=== PATIENT | male | born 1955 | race Hispanic/Latino ===

== ENCOUNTER 2017-08-02 18:11 | Emergency (ER) | payer BC ==
[2017-08-02 20:05] LABS: #Basophils 0.1 thou/uL (0.0-0.2); #Eosinphils 0.2 thou/uL (0.0-0.7); #Lymphocytes 2.3 thou/uL (1.20-3.40); #Monocytes 0.7 thou/uL (0.11-0.59); #Neutrophils 5.8 thou/uL (1.40-6.50); %Basophils 1.1 % (0.0-1.0); %Eosinophils 2.7 % (0.0-10.0); %Monocytes 7.7 % (0.0-10.0); %Neutrophils 63.5 % (42.0-75.0); Hemoglobin 14.2 g/dL (14.0-18.0); Mean Corpuscular HGB CONC 34.1 g/dL (32.0-36.0); Mean Corpuscular Hemoglobin 29.9 pg (27.0-31.0); Mean Corpuscular Volume 87.7 fl (80.0-94.0); Mean Platelet Volume 8.6 fL (7.4-10.4); Platelet Count 261 thou/uL (130-400); RBC Distribution Width 12.1 % (11.5-14.5); Red Blood Cell (RBC) Count 4.76 mill/uL (4.70-6.10); White Blood Cell (WBC) Count 9.1 thou/uL (4.8-10.8)
--- NOTE | 2017-08-02 20:07 | RAD ---
LEFT FOOT THREE VIEWS: History: Infected great toe. Comparison: 07-14-10 FINDINGS/IMPRESSION: There has been amputation of the distal 3rd, 4th, and 5th digits at the distal metatarsal level. 1st and 2nd digits remain. There is no focal lytic or destructive process seen involving the great toe. N o plain film evidence of osteomyelitis identified. POS: [facility]
[2017-08-02 20:36] LABS: ALT (SGPT) 10 U/L (8-55); AST (SGOT) 11 U/L (5-34); Albumin 4.1 g/dL (3.4-4.8); Alkaline Phosphatase 128 U/L (40-150); Anion Gap 15 mmol/L (10-20); BUN (Urea Nitrogen) 26 mg/dL (8.4-25.7); Bilirubin, Total 0.2 mg/dL (0.2-1.2); Calc. Creatinine Clearance 0 mL/min (70-130); Calcium 9.9 mg/dL (7.8-10.44); Carbon Dioxide 24 mmol/L (23-31); Chloride 99 mmol/L (98-107); Estimated GFR-MDRD 50; Globulin 4.2 g/dL (2.4-3.5); Glucose 211 mg/dL (80-115); Potassium 4.3 mmol/L (3.5-5.1); Protein, Total 8.3 g/dL (5.8-8.1); Sodium 134 mmol/L (136-145)
[2017-08-02 21:11] LABS: Bilirubin Negative (Negative); Blood, Urine Trace (Negative); Clarity CLEAR (Clear); Glucose, Urine (Dipstick) >=1000 mg/dL (Negative); Leukocyte Negative (Negative); Nitrite Negative (Negative); Protein, Urine (Dipstick) Negative (Neg-Trace); Specific Gravity, Urine 1.037 (1.002-1.036); Urobilinogen 0.2 mg/dL (0.2-1.0)
[2017-08-02 21:12] LABS: Bacteria/HPF None Seen HPF (None Seen); Hyaline Casts/LPF 0-3 HYALINE CAST LPF (0-3 Hyaline); RBC/HPF 0-3 HPF (0-3); Squamous Epithelial None Seen HPF (0-3); WBC/HPF None Seen HPF (0-3)
[2017-08-02] MEDS ORDERED: Vancomycin HCl 1.25 GM in Sodium Chloride 0.9% 250 ML 250 ML IVPB SCH (21:30)
== END 2017-08-02 23:31 | disposition home or self-care (01) ==
LOC: ERS 18:11
DX: L03.032 Cellulitis of left toe (principal); E10.9 Type 1 diabetes mellitus without complications; Z79.899 Other long term (current) drug therapy
CPT/HCPCS: 10160; 36416; 80053; 81003; 81015; 85025; 87070; 87077; 87186; 87205; 96365; J3370; J7050

== ENCOUNTER 2017-08-07 10:39 | Inpatient (IN) | payer BC ==
[2017-08-07] MEDS ORDERED: Insulin Regular 300 UNITS/3 ML VIAL ONE (11:04)
[2017-08-07 11:15] LABS: #Lymphocytes 0.8 thou/uL (1.20-3.40); #Monocytes 1.3 thou/uL (0.11-0.59); #Neutrophils 14.7 thou/uL (1.40-6.50); %Basophils 0.1 % (0.0-1.0); %Eosinophils 0.2 % (0.0-10.0); %Lymphocytes 4.5 % (21.0-51.0); %Monocytes 7.9 % (0.0-10.0); %Neutrophils 87.3 % (42.0-75.0); Hemoglobin 12.7 g/dL (14.0-18.0); Mean Corpuscular HGB CONC 32.9 g/dL (32.0-36.0); Mean Corpuscular Hemoglobin 29.6 pg (27.0-31.0); Mean Platelet Volume 8.9 fL (7.4-10.4); Platelet Count 255 thou/uL (130-400); RBC Distribution Width 12.4 % (11.5-14.5); White Blood Cell (WBC) Count 16.9 thou/uL (4.8-10.8)
[2017-08-07 11:38] LABS: ALT (SGPT) 11 U/L (8-55); AST (SGOT) 15 U/L (5-34); Albumin 3.6 g/dL (3.4-4.8); Alkaline Phosphatase 109 U/L (40-150); Anion Gap 36 mmol/L (10-20); BUN (Urea Nitrogen) 48 mg/dL (8.4-25.7); Bilirubin, Total 0.3 mg/dL (0.2-1.2); Calc. Creatinine Clearance 0 mL/min (70-130); Calcium 9.2 mg/dL (7.8-10.44); Chloride 87 mmol/L (98-107); Estimated GFR-MDRD 25; Globulin 3.5 g/dL (2.4-3.5); Potassium 4.3 mmol/L (3.5-5.1); Protein, Total 7.1 g/dL (5.8-8.1); Sodium 127 mmol/L (136-145)
[2017-08-07 11:41] LABS: CKMB 1.2 ng/mL (0-6.6); Troponin I Less than 0.010 ng/mL (< 0.028)
[2017-08-07 11:44] LABS: Carbon Dioxide 8 mmol/L (23-31); Glucose 672 mg/dL (80-115)
[2017-08-07] MEDS ORDERED: Insulin Regular 100 units/100 ml in NS IVPB SCH (12:15)
[2017-08-07 12:26] LABS: Bilirubin Moderate (Negative); Blood, Urine Negative (Negative); Clarity CLEAR (Clear); Glucose, Urine (Dipstick) >=1000 mg/dL (Negative); Leukocyte Negative (Negative); Nitrite Negative (Negative); Protein, Urine (Dipstick) Negative (Neg-Trace); Specific Gravity, Urine 1.025 (1.002-1.036); Urobilinogen 0.2 mg/dL (0.2-1.0)
[2017-08-07] MEDS ORDERED: Ondansetron HCl/PF 4 MG/2 ML Vial ONE (13:45)
[2017-08-07] MEDS ORDERED: D5 1/2 NS w/20 mEq KCL 1,000 ML IV PRN (13:57)
[2017-08-07] MEDS ORDERED: Ondansetron HCl/PF 4 MG/2 ML Vial IVP PRN (13:57)
[2017-08-07] MEDS ORDERED: HYDROcodone/Acetaminophen 5/325 mg Tablet PO PRN (13:57)
[2017-08-07] MEDS ORDERED: Dextrose 50% Abboject 50 ML SYRINGE SLOW IVP PRN (13:57)
[2017-08-07] MEDS ORDERED: Dextrose 5 %-0.45 % NaCl 1,000 ML IV PRN (13:57)
[2017-08-07] MEDS ORDERED: Acetaminophen 325 MG TAB PO PRN (13:57)
[2017-08-07] MEDS ORDERED: Dextrose 5% in Water 1,000 ML IV PRN (13:57)
[2017-08-07] MEDS ORDERED: Sodium Chloride 0.9% 1,000 ML IV PRN ×4 (13:57)
[2017-08-07] MEDS ORDERED: HYDROcodone/Acetaminophen 10/325 mg Tablet PO PRN (13:57)
[2017-08-07] MEDS ORDERED: Ondansetron ODT 4 MG TAB PO PRN (13:57)
[2017-08-07] MEDS ORDERED: HumaLOG 300 UNITS/3 ML VIAL SC PRN (13:57)
[2017-08-07] MEDS ORDERED: CCU Electrolyte Replacement 1 EACH IVPB ONE (13:57)
[2017-08-07] MEDS ORDERED: Potassium Chloride 20 MEQ TAB PO PRN (14:08)
[2017-08-07] MEDS ORDERED: Potassium Chloride 40 MEQ in Premix Bag 1 BAG IVPB PRN (14:08)
[2017-08-07] MEDS ORDERED: Magnesium Oxide 400 MG TAB PO PRN ×2 (14:08)
[2017-08-07] MEDS ORDERED: Potassium Phosphate 15 MMOL in Sodium Chloride 0.9% 250 ML 250 ML IV PRN (14:08)
[2017-08-07] MEDS ORDERED: Potassium Chloride 40 MEQ in Sodium Chloride 0.9% 250 ML 250 ML IVPB PRN (14:08)
[2017-08-07] MEDS ORDERED: Potassium Phosphate 12 MMOL in Sodium Chloride 0.9% 250 ML 250 ML IV PRN (14:08)
[2017-08-07] MEDS ORDERED: Potassium Phosphate 9 MMOL in Sodium Chloride 0.9% 100 ML IVPB PRN (14:08)
[2017-08-07] MEDS ORDERED: CCU ELECTROLYTE REPLACEMENT PROTOCOL FS PRN (14:08)
[2017-08-07] MEDS ORDERED: Magnesium 2 GM/NS 0.9% 100 ML 2 GM in Premix Bag 1 BAG IVPB PRN (14:08)
[2017-08-07 14:09] VITALS: BMI 27.2
[2017-08-07] MEDS: NS 0.9% w/ 20 MEQ KCL 1,000 ML IV PRN ×3 (14:12→17:58)
[2017-08-07] MEDS ORDERED: Insulin Detemir 100 UNITS/ML 30 UNITS in Pre-Filled Syringe SC SCH (14:15)
[2017-08-07] MEDS ORDERED: Enoxaparin Sodium 30 MG/0.3 ML SYRINGE SC SCH (14:15)
[2017-08-07] MEDS: Sodium Chloride 0.9% 1,000 ML IV SCH ×3 (14:23→21:00)
[2017-08-07 14:58] LABS: Anion Gap 25 mmol/L (10-20); BUN (Urea Nitrogen) 44 mg/dL (8.4-25.7); Calc. Creatinine Clearance 41 mL/min (70-130); Carbon Dioxide 19 mmol/L (23-31); Chloride 90 mmol/L (98-107); Estimated GFR-MDRD 30; Glucose 339 mg/dL (80-115); Magnesium 2.3 mg/dL (1.6-2.6); Phosphorus 4.1 mg/dL (2.3-4.7); Potassium 4.8 mmol/L (3.5-5.1); Sodium 129 mmol/L (136-145)
[2017-08-07] MEDS: CEFAZOLIN/Water 2 GM/20 ML SYRINGE SLOW IVP SCH ×2 (14:59→21:02)
[2017-08-07] MEDS: HumaLOG 300 UNITS/3 ML VIAL SC SCH (15:20)
--- NOTE | 2017-08-07 16:02 | HP ---
DATE OF ADMISSION: 08/07/2017 TIME OF SERVICE: 12:15 CHIEF COMPLAINT: Elevated blood sugar. HISTORY OF PRESENT ILLNESS: Mr. Frances is a pleasant 61-year-old Latin-[place]ian male with history of diabetes mellitus, type 1, managed by Dr. Cristopher Finch; and left eye blindness. He does have a h istory of reflux in the past; he just takes Tums now for. The patient developed increased pain, redness, and swelling to his left hallux. He has already had a n amputation of the third, fourth, and fifth toes on that side and was concerned, [facility]. There, he underwent I and D with a large amount of pus removed. He was placed on levofloxacin per e ER notes and discharged home. Labs at that time were normal. He initially did well, but on 08/04/2017, two days later, patient started having nausea and vomiting, inability to keep food down. He thought it was his antibiotic, so he stopped taking that, and then his blood sugars started to increase. He was on insulin pump and so continued the bolus himself, bas ed on his elevated blood sugar readings. One time, he was able to get it down to about 149, but that was his lowest it got. He continued to have high blood sugars and some nausea and vomiting that wer e improved continued. So, he presented to the emergency department today for evaluation. On arrival, blood sugar was in the 70s, white blood cell count was 16.9 with an increased granulocyte s, but no bands. He had an anion gap of 36 with a bicarbonate of 8 and beta-hydroxybutyrate was over 12. The patient was given 10 units of IV insulin, 1 liter normal saline, and we are called for admi ssion. The patient is feeling better at this time. He is actually feeling hungry and wanting to eat. He de nies any nausea or vomiting. No diarrhea or constipation, no sick contacts. He has had no chest freddy n or shortness of breath. No sputum production. No GI bleeding. PAST MEDICAL HISTORY: 1. Diabetes mellitus, type 1, since age 11. 2. Left eye blindness. 3. Cellulitis of the left hallux as above. PAST SURGICAL HISTORY: Include left foot toe amputations 3 through , 2012. HOME MEDICATIONS: 1. Metformin 500 mg p.o. b.i.d. 2. Protonix 40 mg daily. 3. Lisinopril 10 mg p.o. b.i.d. 4. Insulin Humalog via insulin pump. 5. Invokana. 6. Levaquin 500 mg daily, started on 08/02/2017 and stopped on 08/04/2017 or 08/05/2017. ALLERGIES: NKDA. FAMILY HISTORY: Negative for clotting or bleeding disorder, no immune dysfunction. No autoimmune di sorders. SOCIAL HISTORY: Negative for habits x3. He is . His accompanies him. REVIEW OF SYSTEMS: A 10-point review of systems was performed and is negative for all systems except that as per HPI. PHYSICAL EXAMINATION: VITAL SIGNS: Temperature 97.7, pulse 59, blood pressure 105/41, respiratory rate 18, satting 95% on room air. GENERAL: He is awake. He is alert. He is oriented x3. He is a well-developed, well-nourished Lati n-[place] male, who appears to be in no acute distress. HEENT: Normocephalic, atraumatic. Right eye pupils round and reactive. Left eye is round and minim ally reactive. Mucous membranes are moist. No visible lesions or thrush. NECK: Supple, no lymphadenopathy, JVD, or thyromegaly. LUNGS: Clear to auscultation bilaterally. He has no wheeze, no rales, no rhonchi. He has good air movement with excellent chest excursion. He has no prolonged expiratory phase. CARDIOVASCULAR: Normocardic and regular. Normal S1 and S2. No S3 or S4. No audible murmurs. ABDOMEN: Soft. It is nontender, nondistended, no mass, no organomegaly. No rebound, rigidity, or g uarding. EXTREMITIES: No cyanosis, no clubbing, no edema. He has got 1+ dorsalis pedis and posterior tibial pulses. His feet are warm. He does have a left foot without the third through fifth toes and had a flap procedure for closure. His hallux has a paronychia present that is apparently improved. There is some redness, no fluctuance, no draining. NEUROLOGIC EXAM: Cranial nerves II-XII are grossly intact without any focal neurologic deficits with the exception of his left eye being minimally reactive. He has no focal neurologic deficits. He hager s normal speech pattern, 5/5 strength. SKIN: Otherwise, warm, moist, well perfused without any other rashes or lesions. MUSCULOSKELETAL EXAM: Normal to inspection. He has no inflamed joints. No palpable joint effusions . LABORATORY DATA: Sodium was 127, artificially down due to pseudohyponatremia, potassium 4.3, chlorid e 87, bicarbonate 8, BUN 48, creatinine 2.63. Of note, his bicarbonate was 24 and creatinine 1.44 on 08/02/2017. Liver function within normal limits. CBC showed a white count of 16.9 with 87% granulocytes, hemoglobin is 12.7, hematocrit 38.7, platelet count is 255,000. CK-MB is normal at 1.2, troponin I is less than 0.010. Review of his culture showed his stool culture from 08/02 being MSSA. Foot x-ray on 08/02/2017 showed no lytic lesions. No evidence of osteomyelitis. ASSESSMENT AND PLAN: 1. Diabetic ketoacidosis. The patient does have an elevated anion gap, elevated beta-hydroxybutyrat e, elevated blood sugar in a type 1 diabetic. His sugar came from 672 down to 460 with a single dose of 10 units. We will hold off on insulin drip, give him a dose of 30 units of Levemir, and use 10 u nits of Humalog before meals with a Humalog sliding scale today. After initial evaluation and prior to dictation of this note, before the benefit of any further insulin, the patient was transferred to the Intermediate Care Unit per my orders. Blood sugar on arrival to the ICU was 342. Repeat labs sh owed his creatinine down from 2.63-2.22, bicarbonate was 8 up to 19, and anion gap was improved from 36 down to 25. His phosphorus and mag were normal at 4.1 and 2.3 respectively. 2. Diabetes mellitus, type 1, as above. 3. Left foot cellulitis, methicillin-susceptible Staphylococcus aureus on culture. We will start hi m on Ancef 2 grams IV q.8 hours and dose is appropriate for normal renal function. 4. Acute kidney injury: The patient has a creatinine of 2.63, normally 1.44. It is likely secondar y to dehydration. We will continue to hydrate and repeat his labs in the morning.
[2017-08-07] MEDS ORDERED: Famotidine 40 MG/4 ML VIAL SLOW IVP SCH (21:00)
[2017-08-07] MEDS ORDERED: Famotidine/PF 20 mg/2ml Vial SLOW IVP SCH (21:00)
[2017-08-07 21:05] LABS: Anion Gap 16 mmol/L (10-20); BUN (Urea Nitrogen) 35 mg/dL (8.4-25.7); Calc. Creatinine Clearance 53 mL/min (70-130); Calcium 8.3 mg/dL (7.8-10.44); Carbon Dioxide 24 mmol/L (23-31); Chloride 102 mmol/L (98-107); Estimated GFR-MDRD 40; Glucose 110 mg/dL (80-115); Magnesium 2.1 mg/dL (1.6-2.6); Phosphorus 2.9 mg/dL (2.3-4.7); Potassium 4.4 mmol/L (3.5-5.1); Sodium 138 mmol/L (136-145)
[2017-08-08 02:07] LABS: #Basophils 0.1 thou/uL (0.0-0.2); #Neutrophils 7.9 thou/uL (1.40-6.50); %Basophils 0.6 % (0.0-1.0); %Eosinophils 0.4 % (0.0-10.0); %Lymphocytes 17.9 % (21.0-51.0); %Monocytes 9.3 % (0.0-10.0); %Neutrophils 71.8 % (42.0-75.0); Hemoglobin 11.8 g/dL (14.0-18.0); Mean Corpuscular HGB CONC 34.4 g/dL (32.0-36.0); Mean Corpuscular Hemoglobin 29.8 pg (27.0-31.0); Mean Corpuscular Volume 86.7 fl (80.0-94.0); Mean Platelet Volume 7.9 fL (7.4-10.4); Platelet Count 214 thou/uL (130-400); RBC Distribution Width 12.2 % (11.5-14.5); Red Blood Cell (RBC) Count 3.95 mill/uL (4.70-6.10)
[2017-08-08 02:16] LABS: Anion Gap 9 mmol/L (10-20); BUN (Urea Nitrogen) 28 mg/dL (8.4-25.7); Calc. Creatinine Clearance 65 mL/min (70-130); Carbon Dioxide 26 mmol/L (23-31); Chloride 106 mmol/L (98-107); Estimated GFR-MDRD 51; Glucose 98 mg/dL (80-115); Phosphorus 2.4 mg/dL (2.3-4.7); Potassium 4.3 mmol/L (3.5-5.1); Sodium 137 mmol/L (136-145)
[2017-08-08] MEDS: NS 0.9% w/ 20 MEQ KCL 1,000 ML IV PRN ×3 (03:56→08:16)
[2017-08-08] MEDS: Sodium Chloride 0.9% 1,000 ML IV SCH ×2 (05:56→08:21)
[2017-08-08] MEDS: CEFAZOLIN/Water 2 GM/20 ML SYRINGE SLOW IVP SCH (06:24)
[2017-08-08] MEDS: HumaLOG 300 UNITS/3 ML VIAL SC SCH ×2 (08:16→10:45)
[2017-08-08 08:40] LABS: Anion Gap 14 mmol/L (10-20); BUN (Urea Nitrogen) 21 mg/dL (8.4-25.7); Calc. Creatinine Clearance 69 mL/min (70-130); Calcium 8.5 mg/dL (7.8-10.44); Carbon Dioxide 23 mmol/L (23-31); Chloride 106 mmol/L (98-107); Estimated GFR-MDRD 53; Glucose 214 mg/dL (80-115); Magnesium 2.1 mg/dL (1.6-2.6); Phosphorus 2.1 mg/dL (2.3-4.7); Potassium 4.7 mmol/L (3.5-5.1); Sodium 138 mmol/L (136-145)
[2017-08-08] MEDS ORDERED: Enoxaparin Sodium 30 MG/0.3 ML SYRINGE SC SCH (09:00)
[2017-08-08 12:06] VITALS: BP 125/37; TEMP 98.8
--- NOTE | 2017-08-08 19:17 | DIS ---
PRIMARY CARE PHYSICIAN: Charly Freitas M.D. DATE OF ADMISSION: 08/07/2017 DATE OF DISCHARGE: 08/08/2017 DISCHARGE DIAGNOSES: 1. Diabetic ketoacidosis. 2. Type 1 diabetes mellitus. 3. Cellulitis of the left hallux. 4. Paronychia of the left hallux. 5. Methicillin-sensitive Staphylococcus aureus abscess and cellulitis of the hallux. 6. Moderate dehydration. 7. Acute kidney injury, resolved. CONSULTATIONS: None. PROCEDURES: None. HISTORY AND PHYSICAL: Mr. Frances is a 61-year-old male who was initially seen in the e mergency department on 08/02/2017 for infection of his left hallux. He had a paronychia that was inc ised and drained and the patient was placed on Levaquin and sent home. The labs at that time were no rmal. Two days later, he started having nausea and vomiting, initially thought it was the antibiotics, so w e stopped it, but continued to have nausea and vomiting and unable to keep anything down. During noreen t time, his sugars became elevated into the 500 to 600 range and he was giving himself boluses via hi s insulin pump. At best, low sugar he had since that time was 149, but it remained elevated and on t he day of admission, came to the emergency department for evaluation. There, he was found to have an anion gap of 36, bicarbonate of 8, sugar was 670, and a beta hydroxybu tyrate came back at 12.5. He was given 10 units of IV insulin and a liter of fluids and we were call ed for admission. HOSPITAL COURSE: The patient was seen and examined by me in the emergency department. He looked to be actually very awake, alert, and comfortable despite what his labs appeared to be. I felt that he did have DKA, but the bigger problem was dehydration and lack of eating causing most of his lab abnor malities. He was placed in the Intermediate Care Unit for close monitoring and frequent labs, he was given 30 units of subcutaneous Levemir and q.i.d. a.c. and at bedtime, Humalog 10 units when he ate. He was transferred to the ICU and immediately was started eating well. His next of the labs showed h is anion gap improved from 36-24, sugars came down from 670-460 with the initial 10 units of Humalog insulin in the Emergency Department, and subsequently down in the mid 300s prior to even getting to t he IMCU and started him on long-acting insulin. Repeat labs through the night showed his anion gap closed, his beta hydroxybutyrate improved down to three 8 or 9 hours later. He was eating well and blood sugars remained fairly normal. On 08/08/2017, he was eating well, felt much better and was stable for discharge. From the aspect of his toe, he was started on Ancef 2 grams IV q.8 hours for MSSA. He tolerated that well and did well overnight. Today, his toe is having some seropurulent drainage, but looked overal l improved. He was transitioned to oral Keflex for another 10-14 days. The patient was seen and exa mined on the day of discharge. Discharge plan and disposition we discussed with the patient and his face to face at the bedside . DISCHARGE MEDICATIONS: 1. Keflex 500 mg p.o. q.i.d. for 10 more days, dosed for his current renal function. Creatinine was down to 1.37. 2. Vitamin C 1000 mg daily. 3. Aspirin 81 mg daily. 4. Invokana 300 mg daily. 5. Vitamin D3 of 1000 units daily. 6. Vitamin B12 of 5000 mcg daily. 7. Fish oil 1 capsule daily. 8. Humalog insulin pump as previous. 9. Lisinopril 10 mg p.o. b.i.d. 10. Metformin 500 mg p.o. b.i.d. 11. Multivitamin daily. FOLLOWUP APPOINTMENTS: Dr. Freitas within a week. DISCHARGE ACTIVITY: As tolerated. DISCHARGE DIET: Diabetic, heart healthy recommended. DISCHARGE CONDITION: Stable. DISPOSITION: He is discharged home via private vehicle.
== END 2017-08-08 12:00 | disposition home or self-care (01) | DRG 638 ==
LOC: ERS 10:39 → IMCU/EMU 12:35
PROVIDERS: ADMIT Internal Medicine Infectious Disease; ATTEND Internal Medicine Infectious Disease
DX: E10.10 Type 1 diabetes mellitus with ketoacidosis without coma (principal); N17.9 Acute kidney failure, unspecified; L03.032 Cellulitis of left toe; B95.61 Methicillin susceptible Staphylococcus aureus infection as the cause of diseases classified elsewhere; E86.0 Dehydration; H54.62 Unqualified visual loss, left eye, normal vision right eye; Z79.4 Long term (current) use of insulin; Z79.899 Other long term (current) drug therapy; Z96.41 Presence of insulin pump (external) (internal); Z89.422 Acquired absence of other left toe(s)
CPT/HCPCS: 36415; 36416; 80048; 80053; 81003; 82010; 82553; 83735; 84100; 84484; 85025; 96361; 96374; 96375; J1815; J2405; J7050

== ENCOUNTER 2019-02-03 14:08 | Inpatient (IN) | payer BC ==
[2019-02-03] MEDS ORDERED: PROPOFOL 200 MG/20 ML VIAL ONE (14:20)
[2019-02-03] MEDS ORDERED: Ondansetron PF 4 MG/2 ML Vial ONE (14:47)
[2019-02-03 14:53] LABS: #Basophils 0.1 thou/uL (0.0-0.2); #Eosinphils 0.1 thou/uL (0.0-0.7); #Lymphocytes 2.3 thou/uL (1.20-3.40); #Monocytes 0.6 thou/uL (0.11-0.59); %Eosinophils 1.1 % (0.0-10.0); %Lymphocytes 20.9 % (21.0-51.0); %Monocytes 5.1 % (0.0-10.0); %Neutrophils 71.8 % (42.0-75.0); Hemoglobin 10.8 g/dL (14.0-18.0); Mean Corpuscular HGB CONC 34.6 g/dL (32.0-36.0); Mean Corpuscular Volume 89.7 fL (78.0-98.0); Mean Platelet Volume 9.2 fL (7.4-10.4); Platelet Count 255 thou/uL (130-400); RBC Distribution Width 11.5 % (11.5-14.5); Red Blood Cell (RBC) Count 3.49 mill/uL (4.70-6.10); White Blood Cell (WBC) Count 11.2 thou/uL (4.8-10.8)
[2019-02-03] MEDS ORDERED: Pantoprazole 40 MG VIAL ONE ×2 (14:53→14:55)
[2019-02-03] MEDS ORDERED: cefTRIAXone\\ROCEPHIN 1 GM VIAL ONE ×2 (14:53→14:55)
[2019-02-03 15:14] LABS: ALT (SGPT) 9 U/L (8-55); AST (SGOT) 11 U/L (5-34); Albumin 3.6 g/dL (3.4-4.8); Alkaline Phosphatase 93 U/L (40-150); Anion Gap 16 mmol/L (10-20); BUN (Urea Nitrogen) 53 mg/dL (8.4-25.7); Bilirubin, Total 0.3 mg/dL (0.2-1.2); CK (CPK) 79 U/L (30-200); Calc. Creatinine Clearance 0 mL/min (70-130); Carbon Dioxide 20 mmol/L (23-31); Chloride 103 mmol/L (98-107); Estimated GFR-MDRD 50; Globulin 2.5 g/dL (2.4-3.5); Glucose 422 mg/dL (80-115); Potassium 4.8 mmol/L (3.5-5.1); Protein, Total 6.1 g/dL (5.8-8.1); Sodium 134 mmol/L (136-145)
[2019-02-03 15:22] LABS: Base Excess-Venous -3.7 mmol/L (-2.0 to 3.0); Bicarbonate (HCO3v) 21.1 mmol/L (22.0-28.0); CO2 Tension (PvCO2) 36.7 mmHg (40.0-50.0); Calcium, Ionized 1.13 mmol/L (See Comments:); Chloride 102 mmol/L (98-107); Glucose 411 mg/dL (80-115); Hemoglobin - Calc 10.4 g/dL (14.0-18.0); Lactate 2.99 mmol/L (0.50-2.20); Potassium 4.5 mmol/L (3.5-5.1); Sodium 136 mmol/L (138-145); T. Carbon Dioxide 22.3 mmol/L (22.0-28.0)
[2019-02-03 15:38] LABS: INR-International Normal Ratio 1.1; PTT 26.7 SEC (22.9-36.1); Prothrombin Time 14.5 SEC (12.0-14.7)
[2019-02-03] MEDS ORDERED: Pantoprazole 80 MG, Admixture Fee 1 EACH in Sodium Chloride 0.9% 100 ML IVPB SCH (15:45)
[2019-02-03] MEDS ORDERED: Octreotide Acetate 1,250 MCG in Sodium Chloride 0.9% 250 ML 250 ML IVPB SCH (15:45)
[2019-02-03] MEDS ORDERED: Pantoprazole 40 MG VIAL IVP SCH (16:15)
[2019-02-03] MEDS ORDERED: Dextrose 50% Abboject 50 ML SYRINGE SLOW IVP PRN ×2 (17:13→18:14)
[2019-02-03] MEDS ORDERED: HUMULIN R 100 UNITS in Sodium Chloride 0.9% 100 ML IVPB SCH (17:13)
[2019-02-03] MEDS ORDERED: Dextrose 5% in Water 1,000 ML IV PRN ×2 (17:13→18:14)
[2019-02-03] MEDS ORDERED: Ondansetron PF 4 MG/2 ML Vial IVP PRN (17:13)
[2019-02-03] MEDS ORDERED: CCU Electrolyte Replacement 1 EACH FS ONE (17:13)
[2019-02-03] MEDS ORDERED: PHOS-NAK 1 PKT PACK PO PRN ×2 (17:21)
[2019-02-03] MEDS ORDERED: Potassium Chloride 40 MEQ in Sodium Chloride 0.9% 250 ML 250 ML IVPB PRN (17:21)
[2019-02-03] MEDS ORDERED: CCU ELECTROLYTE REPLACEMENT PROTOCOL FS PRN (17:21)
[2019-02-03] MEDS ORDERED: Potassium Chloride 40 MEQ in Premix Bag 1 BAG IVPB PRN (17:21)
[2019-02-03] MEDS ORDERED: Potassium Phosphate 15 MMOL in Sodium Chloride 0.9% 250 ML 250 ML IV PRN (17:21)
[2019-02-03] MEDS ORDERED: Potassium Chloride 20 MEQ TAB PO PRN (17:21)
[2019-02-03] MEDS ORDERED: Potassium Phosphate 12 MMOL in Sodium Chloride 0.9% 250 ML 250 ML IV PRN (17:21)
[2019-02-03] MEDS ORDERED: Potassium Phosphate 9 MMOL in Sodium Chloride 0.9% 100 ML IVPB PRN (17:21)
[2019-02-03] MEDS ORDERED: Magnesium 2 GM/50 ML 2 GM in Premix Bag 1 BAG IVPB PRN (17:21)
[2019-02-03] MEDS ORDERED: Magnesium Oxide 400 MG TAB PO PRN ×2 (17:21)
[2019-02-03 18:03] VITALS: BMI 30.7
[2019-02-03] MEDS ORDERED: HumaLOG 300 UNITS/3 ML VIAL SC PRN (18:14)
--- NOTE | 2019-02-03 18:16 | PDOC.EVN ---
Event Note - Event Note Event Note: Patient's blood glucose was 59 when he arrived to the ICU- will not use insulin drip, but place him on Lantus, and SSI.
[2019-02-03] MEDS: Sodium Chloride 0.9% 1,000 ML IV SCH (18:40)
[2019-02-03 19:08] LABS: Lactic Acid 1.2 mmol/L (0.5-2.2)
[2019-02-03 21:08] LABS: Platelet Count 225 thou/uL (130-400)
[2019-02-03 21:27] LABS: Anion Gap 11 mmol/L (10-20); BUN (Urea Nitrogen) 51 mg/dL (8.4-25.7); Calc. Creatinine Clearance 96 mL/min (70-130); Calcium 8.4 mg/dL (7.8-10.44); Carbon Dioxide 25 mmol/L (23-31); Chloride 107 mmol/L (98-107); Estimated GFR-MDRD 76; Potassium 4.6 mmol/L (3.5-5.1); Sodium 138 mmol/L (136-145)
[2019-02-03 21:29] LABS: Glucose 58 mg/dL (80-115)
[2019-02-03] MEDS: Insulin Glargine 14 UNITS in Pre-Filled Syringe SC SCH (22:10)
--- NOTE | 2019-02-04 00:14 | HP ---
PRIMARY CARE PHYSICIAN: Dr. Charly Freitas. CHIEF COMPLAINT: "My blood sugar has been going up and down." HISTORY OF PRESENT ILLNESS: Mr. Frances is a pleasant 63-year-old gentleman, who has a history of type 1 diabetes. He also has vision loss in his left eye secondary to diabetes. He was in his usual state of health until the day before yesterday when he noticed that his blood sugar had been fluctuating and it continued into the day and his blood sugar had gone up as high as 500. He has an insulin pump and had been doing the corrections, but still his blood glucose has been fluctuating. He denies changing his diet and he denies feeling sick that he can remember. However, his is at the bedside and says that he has been having some diarrhea off and on for the past 2 days. She had seen it yesterday, but today she noticed that it was almost black in color, but did not see any blood. She also says that he has been having heartburn off and on and takes Tums and [place] off and on. He also states that he does take an Aleve every now and then for his foot where he had to have an amputation in the past and he has also been taking aspirin 3 times a week. When he came to the ER, it was noted that his blood glucose was elevated and when he was sitting out in the waiting room, he started vomiting some coffee brown emesis. He was brought back into the ER and lab tests were done. He was found to have a hemoglobin of 10.8, which is slightly lower than his previous. By this time, the bleeding had stopped and he is being admitted for further evaluation. The patient denies having any abdominal pain that he can recall, but does admit to having some nausea off and on and again the heartburn symptoms. He has no known history of any previous gastroesophageal disease. He denies knowing of any liver disease in the past and denies feeling dizzy or lightheaded. REVIEW OF SYSTEMS: CONSTITUTIONAL: There has been no fevers, chills. No night sweats. No weight loss. HEENT: No headaches, no dizziness. No visual changes. No sore throat. No rhinorrhea. NECK: No neck pain. No adenopathy. PULMONARY: No hemoptysis. No cough. No wheezing. CARDIOVASCULAR: No chest pain. No shortness of breath. No PND. No orthopnea. GASTROINTESTINAL: Is as in the history of present illness. GENITOURINARY: No urinary frequency or hematuria. No hesitancy. MUSCULOSKELETAL: No muscle pains, weakness, or joint pains, other than occasional pain in his left foot. SKIN AND INTEGUMENT: No skin changes. No rash. ENDOCRINE: No polyuria, no polydipsia, and he does complain of blood glucoses have been elevated. PAST MEDICAL HISTORY: Significant for diabetes mellitus type 1, as well as blindness in the left eye. PAST SURGICAL HISTORY: He has had a left toe amputation. ALLERGIES: NO KNOWN DRUG ALLERGIES. SOCIAL HISTORY: He is a nonsmoker and nondrinker. He is . He would like to be a full code. FAMILY HISTORY: No history of any known heritable diseases. CURRENT MEDICATIONS: Include: 1. Humulin insulin pump. 2. Lisinopril 10 mg twice daily. 3. Metformin 500 mg twice daily. 4. Invokana 300 mg daily. 5. Aspirin 81 mg three times a week. 6. Vitamin D3. 7. Fish oil 1200 mg p.o. daily. 8. Vitamin C 1000 mg daily. 9. Vitamin B12 12380 units sublingual. PHYSICAL EXAMINATION: GENERAL: He is alert and oriented. He is chronically ill in appearance, but well developed and well nourished. VITAL SIGNS: Blood pressure initially was 81/45, heart rate 96, respiratory rate of 18, temperature is afebrile. HEENT: Pupils are equal, round, and reactive to light. Extraocular muscles are intact. Sclerae are anicteric. Throat, there is no erythema, no exudates. NECK: There is no adenopathy, no bruits. LUNGS: There is no wheezing, no rales, no rhonchi. CARDIOVASCULAR: He has normal S1, S2. There is no S3 or S4. No murmurs, clicks, or rubs. ABDOMEN: Obese, it is soft, nontender, and nondistended. Positive for bowel sounds. There is no rebound, no guarding, no appreciated. EXTREMITIES: He did have 1+ edema. There was no erythema. There are no joint effusions. NEUROLOGIC: His cranial nerves are intact. Muscle strength is 5/5 in both his upper and lower extremities. SKIN AND INTEGUMENT: There is no skin breakdown on his feet or lower extremities. He did have some chronic venous stasis changes, but otherwise no other lesions. LABORATORY DATA: Lab results, the white blood cell count is 11.2, hemoglobin 10.8, hematocrit is 31.3, and platelet count is 255. INR is 1.1. Sodium 136, potassium 4.5, chloride is 102, CO2 is 17, BUN 53, creatinine 1.08, glucose is 411. ASSESSMENT: This is a pleasant 63-year-old gentleman, who presents with fluctuating blood glucose as well as what appears to be an upper gastrointestinal bleed. He has history of using some Advil and Aleve off and on and this does present a risk factor for peptic ulcer disease. No history of any liver disease that he is aware of. He will be admitted to the ICU. He has been started on IV fluids for fluid resuscitation. We will monitor his H and H and place him on a Protonix drip. Also, we will continue the octreotide drip as a precaution, and GI will also be consulted. We will transfuse for H and H less than 7 or if he becomes symptomatic. 1. Diabetes mellitus type 1. The patient will be n.p.o. He normally uses an insulin pump; however in order to maintain control of his blood glucose and for the nurses to have a better idea of how much insulin he is receiving, it is better to place the patient on an insulin drip and disable the insulin pump at this time until he has been cleared to start p.o. once again by GI. There will be no Lovenox due to the possible GI bleed and he will be placed on . Job ID: [id number]
[2019-02-04] MEDS: Pantoprazole 80 MG, Admixture Fee 1 EACH in Sodium Chloride 0.9% 100 ML IVPB SCH ×2 (00:44→22:09)
[2019-02-04 01:29] LABS: Hemoglobin 9.8 g/dL (14.0-18.0); Platelet Count 225 thou/uL (130-400)
[2019-02-04 01:38] LABS: Anion Gap 13 mmol/L (10-20); BUN (Urea Nitrogen) 44 mg/dL (8.4-25.7); Calc. Creatinine Clearance 92 mL/min (70-130); Calcium 8.5 mg/dL (7.8-10.44); Carbon Dioxide 20 mmol/L (23-31); Chloride 107 mmol/L (98-107); Estimated GFR-MDRD 73; Glucose 217 mg/dL (80-115); Potassium 4.5 mmol/L (3.5-5.1); Sodium 135 mmol/L (136-145)
--- NOTE | 2019-02-04 02:40 | CON ---
DATE OF CONSULTATION: 02/03/2019 CHIEF COMPLAINT: Vomited blood. HISTORY OF PRESENT ILLNESS: Mr. Frances is a 63-year-old man who was brought to the emergency room by his . The patient is confused and currently, he is in the intensive care unit and is unable to provide any history. He just states now that he woke up in the ICU and it is unsure how he got there and has no recollection of the preceding several days. The ER physician reported that his stated that he had high blood sugars, confusion, weakness and was passing black stools, so she brought him to the ER. The patient has had confusion for a while now. The patient was apparently diaphoretic and had reported abdominal pain earlier in the ER, but the patient currently states he has no abdominal pain. He has been on aspirin. Apparently, he had multiple episodes of coffee-grounds emesis that occurred in the emergency room and this was associated with hypotension with his blood pressure in the 81/45 range. He was given fluid boluses couple of liters and admitted to the ICU due to concern of melena, hematemesis and hypotension. His blood sugars have run low here in ICU and he has required D50. His blood pressure has improved and he has had no further overt bleeding or vomiting since he has been in the ICU. He does not feel nauseated now. The patient denies diarrhea or constipation otherwise. No fever or shortness of breath or prior blood in the stool. He has not had endoscopy before. PAST MEDICAL HISTORY: Diabetes mellitus type 1, which has been managed with insulin pump. He has had amputations of the toes with cellulitis, blindness in the left eye. PAST SURGICAL HISTORY: Has toe amputation. He has had a left hydrocelectomy. FAMILY HISTORY: Negative for GI malignancy. SOCIAL HISTORY: No alcohol, tobacco, or drugs. He is and his has been giving most of his history, however, she is not at the bedside now. ALLERGIES: NO KNOWN DRUG ALLERGIES. MEDICATIONS: 1. Insulin pump. 2. Lisinopril. 3. Metformin. 4. Invokana. 5. Aspirin 81 mg daily. REVIEW OF SYSTEMS: Negative x10 systems reviewed except as stated in the history of present illness. PHYSICAL EXAMINATION: VITAL SIGNS: Temperature is 98.3, pulse 67, blood pressure 123/53. GENERAL: He is in no acute distress. He is awake and alert, but not appropriate to his conversation. He just keeps stating that he does not know how he got here. His eyes have no scleral icterus. Oropharynx is clear without lesions. NECK: No cervical or supraclavicular lymph node adenopathy. LUNGS: Clear to auscultation bilaterally. HEART: Regular rate and rhythm without murmur. ABDOMEN: Soft, nontender, and nondistended. Bowel sounds are present. EXTREMITIES: No lower extremity edema. RECTAL: Reveals dark brown stool in the rectal vault. LABORATORY DATA: White blood cell count is 11.2, hemoglobin was 10.8 on presentation at 1424 hours, it is now 10.0 at 9:00 p.m., platelets 255. INR 1.1. Creatinine 0.99, calcium 8.4, bilirubin 0.3, AST 11, ALT 9, alkaline phosphatase 93, albumin 3.6. IMPRESSION: 1. Hematemesis. He had reportedly multiple episodes of black hematemesis or coffee-ground hematemesis in the emergency room associated with hypotension. He also reportedly had black stools in the ER. Currently, his stools are very dark brown, but did not really appear obviously melenic. He has had no further vomiting here in the ICU. Given the reported hematemesis, hypotension and anemia, it would be reasonable to work this further up with endoscopy. This evening he is working on getting the blood sugars under control in the ICU. 2. Diabetes mellitus type 1, on insulin pump. 3. Confusion. This has apparently been a problem for a while before this admission. RECOMMENDATIONS: 1. Proton pump inhibitor IV. 2. I think we can stop the octreotide as there is no obvious signs of cirrhosis and he is not having large volume bleeding at this point. 3. EGD tomorrow. Job ID: [id number]
[2019-02-04] MEDS: Sodium Chloride 0.9% 1,000 ML IV SCH ×2 (03:37→07:00)
[2019-02-04] MEDS: HumaLOG 300 UNITS/3 ML VIAL SC PRN ×2 (05:14→08:50)
[2019-02-04 06:19] LABS: #Basophils 0.1 thou/uL (0.0-0.2); #Eosinphils 0.2 thou/uL (0.0-0.7); #Lymphocytes 2.1 thou/uL (1.20-3.40); #Monocytes 0.6 thou/uL (0.11-0.59); #Neutrophils 6.7 thou/uL (1.40-6.50); %Basophils 0.7 % (0.0-1.0); %Lymphocytes 21.5 % (21.0-51.0); %Monocytes 5.9 % (0.0-10.0); %Neutrophils 69.9 % (42.0-75.0); Hemoglobin 9.6 g/dL (14.0-18.0); Mean Corpuscular Hemoglobin 31.4 pg (27.0-31.0); Mean Corpuscular Volume 89.6 fL (78.0-98.0); Mean Platelet Volume 8.9 fL (7.4-10.4); Platelet Count 230 thou/uL (130-400); RBC Distribution Width 11.7 % (11.5-14.5); Red Blood Cell (RBC) Count 3.07 mill/uL (4.70-6.10); White Blood Cell (WBC) Count 9.5 thou/uL (4.8-10.8)
[2019-02-04 06:36] LABS: Anion Gap 12 mmol/L (10-20); BUN (Urea Nitrogen) 42 mg/dL (8.4-25.7); Calc. Creatinine Clearance 85 mL/min (70-130); Calcium 8.5 mg/dL (7.8-10.44); Carbon Dioxide 23 mmol/L (23-31); Chloride 104 mmol/L (98-107); Estimated GFR-MDRD 66; Glucose 330 mg/dL (80-115); Sodium 134 mmol/L (136-145)
[2019-02-04 06:37] LABS: Anion Gap 12 mmol/L (10-20); BUN (Urea Nitrogen) 41 mg/dL (8.4-25.7); Calc. Creatinine Clearance 84 mL/min (70-130); Calcium 8.6 mg/dL (7.8-10.44); Carbon Dioxide 22 mmol/L (23-31); Chloride 106 mmol/L (98-107); Estimated GFR-MDRD 66; Glucose 346 mg/dL (80-115); Potassium 5.1 mmol/L (3.5-5.1); Sodium 135 mmol/L (136-145)
[2019-02-04] MEDS: Insulin Glargine 14 UNITS in Pre-Filled Syringe SC SCH ×2 (08:49→22:12)
[2019-02-04] MEDS ORDERED: Sodium Chloride 0.9% 1,000 ML IV SCH (12:18)
--- NOTE | 2019-02-04 13:59 | CON ---
DATE OF CONSULTATION: 02/04/2019 SERVICE: Pulmonary Medicine. REASON FOR CONSULT: ICU patient. HISTORY OF PRESENT ILLNESS: The patient is a 63-year-old male with past medical history significant for type 2 diabetes mellitus. He is having some labile blood sugars. As such, his brought him to the emergency department. When he was here, he started vomiting fresh blood, and had a black tar sticky stool. As such, he was put in the ICU. He was scoped last night. Two ulcers were identified and represented a likely source of the bleed. Based on what we could tell, it was a low risk for rebleed. Overnight, his hemoglobins have remained stable. He is getting his appetite back. He denies any having any abdominal discomfort, fevers, chills, nausea, or vomiting. Otherwise, he is returning to his usual state of health and has no specific complaints. PAST MEDICAL HISTORY: 1. Diabetes mellitus, type 1. 2. Left eye blindness. 3. Peptic ulcer disease. PAST SURGICAL HISTORY: 1. Left toe amputation. 2. EGD. SOCIAL HISTORY: Negative for alcohol, tobacco, or illicit drug use. He is . He has no exposure to chemicals, dust, asbestos, or tuberculosis. FAMILY HISTORY: Noncontributory. ALLERGIES: NO KNOWN DRUG ALLERGIES. MEDICATIONS: List of his inpatient and outpatient medications were reviewed. Multiple updates were made. REVIEW OF SYSTEMS: General; head, eyes, ears, nose, and throat; cardiovascular, respiratory, GI, , musculoskeletal, neurologic, and skin are negative, except as mentioned in the HPI. PHYSICAL EXAMINATION: VITAL SIGNS: Afebrile, pulse 78, blood pressure 99/59, respirations 17, saturation 100%, currently on room air. GENERAL: The patient is awake and alert, in no apparent distress. LUNGS: Wonderful air entry. There is no prolonged expiratory phase or wheezing present. HEART: Normal rate and regular. ABDOMEN: Soft, nontender, nondistended. Bowel sounds are positive. There is no tenderness in the epigastric region. No rebound or guarding. Bowel sounds are present. MUSCULOSKELETAL: No cyanosis or clubbing. No pitting in the bilateral lower extremities. NEUROLOGIC: Grossly nonfocal. LABORATORY DATA: Sodium 135. Basic metabolic profile is otherwise unremarkable. BUN to creatinine ratio is elevated, likely reflecting GI bleed. It seems to be improving. Glucose 346, and now downtrending. Calcium 8.6. Troponin is unremarkable. Liver function studies were unremarkable. Lactic acid has cleared to 1.2. Hemoglobin 9.6 and roughly stable. Basic metabolic profile is otherwise unremarkable. INR 1.1. ASSESSMENT: 1. Acute blood loss anemia secondary to gastrointestinal bleed. 2. Peptic ulcer disease. Status post esophagogastroduodenoscopy and intervention. 3. Type 1 diabetes mellitus. DISCUSSION AND PLAN: We will resume some of the patient's home medications. At this point, the patient is stable for transition out of the ICU to the floor given that he is a low risk for rebleed. At this point, he has no further requirements for inpatient Pulmonary or Critical Care opinion, and I will sign off. Please call with additional questions or concerns through time. 70 minutes have been devoted to this patient in various activities. I personally reviewed all imaging studies and laboratory data noted within this document. For fifty percent of this time, I was interacting with the patient at the bedside or coordinating care with the care team. For the remainder of the time I was immediately available to the patient in the hospital unit. Job ID: [id number] [id number]
--- NOTE | 2019-02-04 14:06 | PDOC.HOSPP ---
- Subjective Encounter Date: 02/04/19 Encounter Time: 08:45 Subjective: no further nausea/hematemesis and daughter at bedside no sob or abd pain - Objective Vital Signs & Weight: Vital Signs (12 hours) Temp Pulse Ox 02/04/19 08:00 98.7 F 97 02/04/19 07:54 100 02/04/19 04:00 98.7 F Weight Admit Weight 195 lb 12.328 oz Weight 195 lb 15.855 oz Most Recent Monitor Data Heart Rate from ECG 74 NIBP 119/43 NIBP BP-Mean 68 Respiration from ECG 11 SpO2 100 I&O: 02/03/19 02/04/19 02/05/19 06:59 06:59 06:59 Intake Total 1231 Output Total 2400 1300 Balance -1169 -1300 Result Diagrams: 02/04/19 05:45 02/04/19 05:45 Additional Labs: Accuchecks 02/04/19 02/04/19 02/04/19 12:26 08:51 05:05 POC Glucose 77 203 H 362 H 02/03/19 02/03/19 02/03/19 23:31 22:16 20:08 POC Glucose 170 H 190 H 79 02/03/19 02/03/19 02/03/19 18:40 18:34 17:45 POC Glucose 62 L 49 L* 59 L* 02/03/19 02/03/19 16:27 14:14 POC Glucose 189 H 392 H Hospitalist ROS - Medication Medications: Active Medications Generic Name Dose Route Start Last Admin Trade Name Freq PRN Reason Stop Dose Admin Dextrose/Water 25 gm 02/03/19 18:14 02/03/19 21:47 Dextrose 50% SLOW IVP 25 gm PRN PRN Administration Hypoglycemia Pantoprazole Sodium 80 mg/ 100 mls @ 10 mls/hr 02/03/19 15:15 02/04/19 00:44 Miscellaneous Medication 1 IVPB 100 mls each/ Sodium Chloride INF ZOHRA Administration Dextrose/Water 1,000 mls @ 0 mls/hr 02/03/19 18:14 02/03/19 18:40 D5w IV 1,000 mls .Q0M PRN Administration Hypoglycemia As Directed Insulin Glargine 14 units/ 0.14 mls @ 0 mls/hr 02/03/19 21:00 02/03/19 22:10 Miscellaneous Medication SC 0.14 mls HS ZOHRA Administration Insulin Glargine 14 units/ 0.14 mls @ 0 mls/hr 02/04/19 09:00 02/04/19 08:49 Miscellaneous Medication SC 0.14 mls QAM ZOHRA Administration Insulin Human Lispro 0 units 02/03/19 18:14 02/04/19 08:50 Humalog SC 3 unit .MILD SLIDING SCALE PRN Administration Mild Correctional Scale - Exam General Appearance: NAD, awake alert Eye: PERRL, anicteric sclera ENT: no oropharyngeal lesions, moist mucosa Neck: supple, no JVD Heart: RRR, no murmur Respiratory: no wheezes, no rales Gastrointestinal: soft, non-tender, non-distended, normal bowel sounds Extremities: no cyanosis, no edema Neurological: cranial nerve grossly intact, no focal deficits Psychiatric: normal affect, A&O x 3 Hosp A/P (1) GI bleed Code(s): K92.2 - GASTROINTESTINAL HEMORRHAGE, UNSPECIFIED Status: Acute Qualifiers: GI bleed type/associated pathology: unspecified gastrointestinal hemorrhage type Qualified Code(s): K92.2 - Gastrointestinal hemorrhage, unspecified (2) Acute blood loss anemia Code(s): D62 - ACUTE POSTHEMORRHAGIC ANEMIA Status: Acute (3) DM type 2 (diabetes mellitus, type 2) Status: Chronic Qualifiers: Diabetes mellitus joint terminal attack controller insulin use: with usp use (4) JAYDON (acute kidney injury) Code(s): N17.9 - ACUTE KIDNEY FAILURE, UNSPECIFIED Status: Acute (5) Dyslipidemia Code(s): E78.5 - HYPERLIPIDEMIA, UNSPECIFIED Status: Chronic - Plan is npo for egd this am continue lantus, gentle iv hydration may tx to medical floor if egd findings are stable d/w family and gave full updates. hemostable now
--- NOTE | 2019-02-04 17:42 | OP ---
DATE OF PROCEDURE: 02/04/2019 PROCEDURE PERFORMED: Esophagogastroduodenoscopy with biopsy. PREOPERATIVE DIAGNOSIS: Hematemesis and anemia of acute blood loss. DESCRIPTION OF PROCEDURE: Informed consent was obtained from the patient's family. He was sedated with total intravenous anesthesia. The bite block was placed, and the endoscope was advanced easily to the second portion of the duodenum, and retroflexion was performed in the stomach. The esophagus had grade D erosive esophagitis in the distal third of the esophagus. Biopsies were obtained to rule out viral esophagitis. The stomach had two 14 mm cratered ulcers in the antrum without stigmata of recent bleeding. There was erythematous gastritis in the antrum and body as well. Biopsies were obtained from the ulcer edge in the antrum and body to rule out Helicobacter pylori. Retroflexed views in the stomach were unremarkable. The pylorus and first and second portions of the duodenum were normal. IMPRESSION: 1. Grade D erosive esophagitis of the distal 1/3 of the esophagus. Biopsies were taken to rule out viral esophagitis. 2. Two cratered ulcers measuring 14 mm in the gastric antrum, biopsied to rule out Helicobacter pylori. 3. No stigmata of recent bleeding. RECOMMENDATIONS: 1. Proton pump inhibitor twice daily. 2. Await histopathology. 3. Advance his diet. 4. Anticipate discharge home tomorrow if his hemoglobin is stable. I will sign off for now. Please call if GI can be of assistance. Job ID: [id number]
[2019-02-05 06:46] LABS: Hemoglobin 8.9 g/dL (14.0-18.0)
[2019-02-05 08:27] VITALS: BP 122/88; TEMP 98.9
[2019-02-05] MEDS: Insulin Glargine 14 UNITS in Pre-Filled Syringe SC SCH (08:48)
[2019-02-05] MEDS ORDERED: Fish Oil 1,000 MG CAP PO SCH (09:00)
[2019-02-05] MEDS ORDERED: Cyanocobalamin (Vitamin B-12) 1,000 MCG TAB PO SCH (09:00)
[2019-02-05] MEDS: HumaLOG 300 UNITS/3 ML VIAL SC PRN (12:08)
--- NOTE | 2019-02-05 14:08 | DIS ---
DATE OF ADMISSION: 02/03/2019 DATE OF DISCHARGE: 02/05/2019 DISCHARGE DISPOSITION: Home. PRIMARY DISCHARGE DIAGNOSES: GI bleed with acute blood loss anemia; acute kidney injury, resolving. SECONDARY DISCHARGE DIAGNOSES: Diabetes mellitus type 2, hypertension, dyslipidemia. PROCEDURES DONE DURING HOSPITALIZATION: The patient has had upper endoscopy done by Dr. Cristopher Valera on 02/04/2019 showed grade D erosive esophagitis of the distal one-third of esophagus. Biopsies were obtained. Two cratered measuring 14 mm in the gastric antrum were biopsied. No stigmata of recent bleeding were seen. Hemoglobin and hematocrit on the day of discharge are 9 and 25, platelet count is 230. Admitting BUN and creatinine were 53 and 1.4, serum glucose was 422 on the day of admission. DISCHARGE MEDICATIONS: 1. Aspirin 81 mg on Wednesday, Wednesday, Wednesday. 2. Protonix 40 mg p.o. twice daily. 3. Ferrous sulfate 325 mg daily. 4. Metformin 500 mg twice daily. 5. Lisinopril 10 mg twice daily. 6. Fish oil one capsule daily. 7. Vitamin B12 5000 mcg sublingual daily. 8. Vitamin D3 1000 units p.o. daily. 9. Invokana 300 mg p.o. daily. 10. Vitamin C 1000 mg p.o. daily. ALLERGIES: NO KNOWN DRUG ALLERGIES. DISCHARGE PLAN: The patient to follow up with his primary care physician Dr. Charly Freitas in 1 week. He also needs to follow up with Dr. Cristopher Valera in 3 to 4 weeks. BRIEF COURSE DURING HOSPITALIZATION: The patient initially got admitted on the with uncontrolled blood sugars. He had a coffee ground emesis and was found to have had hemoglobin of 10.8 g. The patient felt dizzy and lightheaded. His blood pressure initially was 81/40 and was admitted to ICU. Fluid resuscitation was done and he has had serial hemoglobin and hematocrit done. He was on Protonix drip. He has had consultation with Dr. Cristopher Valera for Gastroenterology. Upper endoscopy was done on the with findings described above. He needs to continue Protonix twice daily. He is advised to follow up with Dr. Cristopher Valera in 3 to 4 weeks and primary care physician in 1 week. This morning, he is ambulating and eating solid food. He is hemodynamically stable. Oral iron prescriptions have been given to him. Please note, I have seen and examined the patient on the day of discharge. Jim ID: [id number] MTDD
--- NOTE | 2019-02-07 08:30 | PQF ---
[employer] Crystal Reports Osmaniform RAJANI Gipson JOSEF GREGORIO MD [id number] [facility] [id number] CLINICAL DOCUMENTATION CLARIFICATION FORM: POST DISCHARGE Addendum to original discharge summary date: ____ Late entry note date: __ DATE: 02/07/2019 ATTN:JOSEF GREGORIO MD Please exercise your independent, professional judgment in responding to the clarification form. Clinical indicators are provided on the bottom of this form for your review Please check appropriate box(s): [ x ] Gastrointestinal Bleed due to Erosive esophagitis [ x ] Gastrointestinal Bleed due to Gastric ulcer [ ] Gastrointestinal Bleed unspecified cause [ ] Other diagnosis [ ] Unable to determine For continuity of documentation, please document condition throughout progress notes and discharge summary. Thank You. CLINICAL INDICATORS - SIGNS / SYMPTOMS / LABS - GI bleed with acute blood loss anemia-DS, 02/05, JOSEF GREGORIO MD - EGD showed grade D erosive esophagitis of the distal one-third of esophagus-- DS, 02/05, JOSEF GREGORIO MD - Two cratered ulcers measuring 14mm in the gastric antrum-EGD op report, 02/04 , Soto Harrison MD - Two ulcers were identified and represented a likely source of the bleed- Consult report, 02/04, Ritika Block MD RISK FACTORS - Acute blood loss anemia sec to gastrointestinal bleed-Consult report, 02/04, Ritika Block MD - PMH: PUD- Consult report, 02/04, Ritika Block MD TREATMENTS: - EGD-op report, 02/04, Soto Harrison MD - Protonix.IV-MAR, 01/03 (This form is maintained as a part of the permanent medical record) 2014 [employer]. All Rights Reserved [place] [not provided] [not provided] MTDD
== END 2019-02-05 12:26 | disposition home or self-care (01) | DRG 381 ==
LOC: ERS 14:08 → CCU 16:10 → T4-A 02-04 15:50
PROVIDERS: ADMIT Internal Medicine; ATTEND Internal Medicine
PROC: 0DB58ZX Excision of Esophagus, Via Natural or Artificial Opening Endoscopic, Diagnostic (ICD-10-PCS; principal; 2019-02-04)
PROC: 0DB78ZX Excision of Stomach, Pylorus, Via Natural or Artificial Opening Endoscopic, Diagnostic (ICD-10-PCS; 2019-02-04)
DX: K22.11 Ulcer of esophagus with bleeding (principal); D62 Acute posthemorrhagic anemia; N17.9 Acute kidney failure, unspecified; K25.4 Chronic or unspecified gastric ulcer with hemorrhage; K22.10 Ulcer of esophagus without bleeding; H54.62 Unqualified visual loss, left eye, normal vision right eye; I95.9 Hypotension, unspecified; I10 Essential (primary) hypertension; E10.9 Type 1 diabetes mellitus without complications; Z96.41 Presence of insulin pump (external) (internal); E78.5 Hyperlipidemia, unspecified; Z89.422 Acquired absence of other left toe(s); Z87.11 Personal history of peptic ulcer disease
CPT/HCPCS: 36415; 36416; 36430; 80048; 80053; 82330; 82550; 82803; 83605; 84484; 85014; 85018; 85025; 85049; 85610; 85730; 86850; 86900; 86901; 88305; 88312; 88313; 93005; 96365; 96367; 96375; C9113; J0696; J1815; J2354; J2405; J2704; J3490; J7050

== ENCOUNTER 2021-05-14 10:41 | Inpatient (IN) | payer MEDICARE, BC ==
[2021-05-14 11:56] LABS: #Basophils 0.1 thou/uL (0.0-0.2); #Monocytes 0.7 thou/uL (0.11-0.59); #Neutrophils 11.4 thou/uL (1.40-6.50); %Basophils 0.6 % (0.0-1.0); %Eosinophils 0.2 % (0.0-10.0); %Lymphocytes 14.2 % (21.0-51.0); %Neutrophils 80.1 % (42.0-75.0); Mean Corpuscular HGB CONC 32.4 g/dL (32.0-36.0); Mean Corpuscular Hemoglobin 29.8 pg (27.0-31.0); Mean Corpuscular Volume 92.2 fL (78.0-98.0); Mean Platelet Volume 8.8 fL (7.4-10.4); Platelet Count 337 thou/uL (130-400); RBC Distribution Width 11.9 % (11.5-14.5); Red Blood Cell (RBC) Count 5.02 mill/uL (4.70-6.10); White Blood Cell (WBC) Count 14.2 thou/uL (4.8-10.8)
[2021-05-14 12:19] LABS: ALT (SGPT) 328 U/L (8-55); AST (SGOT) 89 U/L (5-34); Albumin 3.6 g/dL (3.4-4.8); Alkaline Phosphatase 254 U/L (40-110); Anion Gap 33 mmol/L (10-20); BUN (Urea Nitrogen) 40 mg/dL (8.4-25.7); Bilirubin, Total 0.4 mg/dL (0.2-1.2); Calc. Creatinine Clearance 0 mL/min (70-130); Calcium 10.2 mg/dL (7.8-10.44); Carbon Dioxide 12 mmol/L (23-31); Chloride 93 mmol/L (98-107); Globulin 4.1 g/dL (2.4-3.5); Glucose 339 mg/dL (80-115); Potassium 4.5 mmol/L (3.5-5.1); Protein, Total 7.7 g/dL (5.8-8.1); Sodium 133 mmol/L (136-145)
[2021-05-14 12:21] LABS: Magnesium 2.7 mg/dL (1.6-2.6); Phosphorus 3.9 mg/dL (2.3-4.7)
[2021-05-14 12:22] LABS: Analyzer IN Cardio ER; Base Excess -15.7 mEq/L (-2.0 to +3.0); Chloride (VBG) 92 mmol/L (98-106); Hemoglobin (Hb) 15.8 g/dL (12.6-17.4); Potassium (VBG) 4.35 mmol/L (3.70-5.30); Sodium 133.3 mmol/L (133-146)
[2021-05-14 12:24] LABS: Actual Bicarbonate (HCO3v) 11 mEq/L (22-28); pH (venous) 7.19 (7.32-7.43)
[2021-05-14] MEDS ORDERED: Acetaminophen 325 MG TAB PO PRN (13:14)
[2021-05-14] MEDS ORDERED: Calcium Carbonate 500 MG ChewTAB PO PRN (13:14)
[2021-05-14] MEDS ORDERED: Senokot S 8.6-50 MG TAB PO PRN (13:14)
[2021-05-14] MEDS ORDERED: Ondansetron ODT 4 MG TAB PO PRN (13:14)
[2021-05-14] MEDS ORDERED: Ondansetron PF 4 MG/2 ML Vial IVP PRN (13:14)
[2021-05-14] MEDS ORDERED: INSULIN REGULAR IN 0.9 % NACL 100 UNIT/100 ML BAG ONE (13:14)
[2021-05-14] MEDS ORDERED: Dextrose 5 %-0.45 % NaCl 1,000 ML IV PRN (13:17)
[2021-05-14] MEDS ORDERED: Electrolyte Replacement Protocol 1 EACH IVPB SCH (13:17)
[2021-05-14] MEDS ORDERED: Sodium Chloride 0.9% 1,000 ML IV PRN ×4 (13:17)
[2021-05-14] MEDS ORDERED: NS 0.9% w/ 20 MEQ KCL 1,000 ML IV PRN ×2 (13:17)
[2021-05-14] MEDS ORDERED: D5 1/2 NS w/20 mEq KCL 1,000 ML IV PRN (13:17)
[2021-05-14] MEDS ORDERED: HUMULIN R 100 UNITS in Sodium Chloride 0.9% 100 ML IVPB SCH (13:30)
[2021-05-14] MEDS ORDERED: D5 1/2 NS w/20 mEq KCL 1,000 ML ONE (13:41)
[2021-05-14 15:28] LABS: Anion Gap 27 mmol/L (10-20); BUN (Urea Nitrogen) 36 mg/dL (8.4-25.7); Calc. Creatinine Clearance 0 mL/min (70-130); Calcium 9.3 mg/dL (7.8-10.44); Carbon Dioxide 14 mmol/L (23-31); Chloride 99 mmol/L (98-107); Glucose 156 mg/dL (80-115); Sodium 135 mmol/L (136-145)
[2021-05-14 15:32] LABS: SARS-CoV-2 NAA Rapid Test Not Detected (NotDetected)
[2021-05-14 15:35] LABS: Troponin I 0.014 ng/mL (< 0.028)
[2021-05-14] MEDS: Heparin 5,000 UNITS/ML VIAL SC SCH ×2 (16:37→21:14)
[2021-05-14 17:35] VITALS: BMI 28.8
[2021-05-14 19:37] LABS: Anion Gap 20 mmol/L (10-20); BUN (Urea Nitrogen) 32 mg/dL (8.4-25.7); Calc. Creatinine Clearance 52 mL/min (70-130); Calcium 8.8 mg/dL (7.8-10.44); Carbon Dioxide 21 mmol/L (23-31); Chloride 100 mmol/L (98-107); Glucose 216 mg/dL (80-115); Magnesium 2.4 mg/dL (1.6-2.6); Phosphorus 2.9 mg/dL (2.3-4.7); Potassium 4.7 mmol/L (3.5-5.1); Sodium 136 mmol/L (136-145)
[2021-05-14] MEDS ORDERED: HumaLOG 300 UNITS/3 ML VIAL SC PRN ×2 (19:51)
[2021-05-14] MEDS ORDERED: Dextrose 50% Abboject 50 ML SYRINGE SLOW IVP PRN (19:51)
[2021-05-14] MEDS ORDERED: Dextrose 5% in Water 1,000 ML IV PRN (19:51)
[2021-05-14] MEDS: Sodium Chloride 0.45% 1,000 ML IV SCH (19:59)
[2021-05-14] MEDS ORDERED: Insulin Glargine 10 UNITS in Pre-Filled Syringe 1 EACH SC SCH (20:00)
[2021-05-14] MEDS ORDERED: Lantus 1000 UNITS/10 ML VIAL SC SCH (20:15)
[2021-05-14] MEDS ORDERED: Cyanocobalamin (Vitamin B-12) 1,000 MCG TAB PO SCH (21:00)
[2021-05-14] MEDS ORDERED: Folic Acid 1 MG TAB PO SCH (21:00)
[2021-05-15] MEDS: Sodium Chloride 0.45% 1,000 ML IV SCH (03:25)
[2021-05-15 03:56] LABS: Phosphorus 2.2 mg/dL (2.3-4.7)
[2021-05-15 03:57] LABS: ALT (SGPT) 209 U/L (8-55); AST (SGOT) 92 U/L (5-34); Albumin 2.7 g/dL (3.4-4.8); Alkaline Phosphatase 188 U/L (40-110); Anion Gap 15 mmol/L (10-20); BUN (Urea Nitrogen) 24 mg/dL (8.4-25.7); Bilirubin, Total 0.4 mg/dL (0.2-1.2); Calc. Creatinine Clearance 69 mL/min (70-130); Carbon Dioxide 23 mmol/L (23-31); Chloride 102 mmol/L (98-107); Globulin 2.5 g/dL (2.4-3.5); Glucose 109 mg/dL (80-115); Magnesium 2.2 mg/dL (1.6-2.6); Potassium 4.8 mmol/L (3.5-5.1); Protein, Total 5.2 g/dL (5.8-8.1); Sodium 135 mmol/L (136-145)
[2021-05-15 07:33] VITALS: TEMP 98.3
[2021-05-15 07:40] LABS: #Eosinphils 0.2 thou/uL (0.0-0.7); #Lymphocytes 2.3 thou/uL (1.20-3.40); #Monocytes 0.6 thou/uL (0.11-0.59); %Basophils 0.3 % (0.0-1.0); %Eosinophils 2.2 % (0.0-10.0); %Lymphocytes 22.9 % (21.0-51.0); %Monocytes 5.8 % (0.0-10.0); %Neutrophils 68.9 % (42.0-75.0); Hemoglobin 12.4 g/dL (14.0-18.0); Mean Corpuscular HGB CONC 33.7 g/dL (32.0-36.0); Mean Corpuscular Hemoglobin 30.9 pg (27.0-31.0); Mean Corpuscular Volume 91.7 fL (78.0-98.0); Mean Platelet Volume 8.4 fL (7.4-10.4); Platelet Count 227 thou/uL (130-400); RBC Distribution Width 11.8 % (11.5-14.5); White Blood Cell (WBC) Count 10.2 thou/uL (4.8-10.8)
[2021-05-15] MEDS ORDERED: K-Phos Neutral 250 MG TAB PO SCH (08:00)
[2021-05-15] MEDS ORDERED: Lantus 1000 UNITS/10 ML VIAL SC SCH (09:00)
== END 2021-05-15 08:46 | disposition home or self-care (01) | DRG 638 ==
LOC: ERS 10:41 → IMCU/EMU 13:17
PROVIDERS: ADMIT Internal Medicine; ATTEND Internal Medicine
DX: E10.10 Type 1 diabetes mellitus with ketoacidosis without coma (principal); N17.9 Acute kidney failure, unspecified; E87.1 Hypo-osmolality and hyponatremia; Z20.822 Contact with and (suspected) exposure to COVID-19; N18.2 Chronic kidney disease, stage 2 (mild); E86.0 Dehydration; E83.39 Other disorders of phosphorus metabolism; E87.6 Hypokalemia; D72.829 Elevated white blood cell count, unspecified; Z79.82 Long term (current) use of aspirin; Z79.4 Long term (current) use of insulin; Z79.899 Other long term (current) drug therapy; Z89.422 Acquired absence of other left toe(s)
CPT/HCPCS: 36415; 36416; 71045; 80053; 82010; 82550; 82805; 83690; 83735; 83930; 84100; 84484; 85025; 90471; 90732; 93005; G0009; J1644; J1815; J2405; J3480; J3490; U0002

== ENCOUNTER 2022-08-03 09:05 | Emergency (ER) | payer MEDICARE, BC ==
[2022-08-03 10:14] LABS: #Basophils 0.1 thou/uL (0.0-0.2); #Eosinphils 0.3 thou/uL (0.0-0.7); #Monocytes 0.8 thou/uL (0.11-0.59); #Neutrophils 6.2 thou/uL (1.40-6.50); %Eosinophils 3.3 % (0.0-10.0); %Lymphocytes 28.7 % (21.0-51.0); %Monocytes 7.7 % (0.0-10.0); %Neutrophils 59.4 % (42.0-75.0); Hemoglobin 14.2 g/dL (14.0-18.0); Mean Corpuscular HGB CONC 33.3 g/dL (32.0-36.0); Mean Corpuscular Hemoglobin 30.9 pg (27.0-31.0); Mean Corpuscular Volume 92.8 fl (78.0-98.0); Mean Platelet Volume 8.7 fL (7.4-10.4); Platelet Count 283 10x3/uL (130-400); RBC Distribution Width 11.5 % (11.5-14.5); White Blood Cell (WBC) Count 10.4 10x3/uL (4.8-10.8)
[2022-08-03 10:48] LABS: ALT (SGPT) 17 U/L (8-55); AST (SGOT) 19 U/L (5-34); Albumin 3.9 g/dL (3.4-4.8); Alkaline Phosphatase 125 U/L (40-110); Anion Gap 13 mmol/L (10-20); BUN (Urea Nitrogen) 11 mg/dL (8.4-25.7); Bilirubin, Total 0.4 mg/dL (0.2-1.2); Calc. Creatinine Clearance 0 mL/min (70-130); Calcium 9.5 mg/dL (7.8-10.44); Carbon Dioxide 25 mmol/L (23-31); Chloride 104 mmol/L (98-107); Estimated GFR 96; Globulin 3.5 g/dL (2.4-3.5); Glucose 60 mg/dL (80-115); Potassium 4.8 mmol/L (3.5-5.1); Protein, Total 7.4 g/dL (5.8-8.1); Sodium 137 mmol/L (136-145)
== END 2022-08-03 11:45 | disposition home or self-care (01) ==
LOC: ERS 09:05
DX: L08.9 Local infection of the skin and subcutaneous tissue, unspecified (principal); E10.649 Type 1 diabetes mellitus with hypoglycemia without coma
CPT/HCPCS: 36416; 80053; 83605; 85025; 87040

== ENCOUNTER 2022-09-10 14:38 | Outpatient (CLI) | payer MEDICARE, BC | END 2022-09-10 14:39 | disposition home or self-care (01) | LOC: BICCT 14:38 | PROVIDERS: ATTEND Internal Medicine Cardiovascular Disease | DX: L97.929 Non-pressure chronic ulcer of unspecified part of left lower leg with unspecified severity (principal) | CPT/HCPCS: 75635; 82565 ==

== ENCOUNTER 2022-09-28 09:26 | Outpatient (CLI) | payer MEDICARE, BC | END 2022-09-28 09:27 | disposition home or self-care (01) | LOC: RAD 09:26 | PROVIDERS: ATTEND Nurse Practitioner Family | DX: I70.292 Other atherosclerosis of native arteries of extremities, left leg (principal); J98.4 Other disorders of lung; J92.9 Pleural plaque without asbestos; J94.8 Other specified pleural conditions | CPT/HCPCS: 71046 ==

== ENCOUNTER 2022-12-05 07:35 | Emergency (ER) | payer MEDICARE, BC ==
[2022-12-05 08:05] LABS: #Basophils 0.1 thou/uL (0.0-0.2); #Eosinphils 0.4 thou/uL (0.0-0.7); #Monocytes 1.1 thou/uL (0.11-0.59); #Neutrophils 8.3 thou/uL (1.40-6.50); %Basophils 0.6 % (0.0-1.0); %Eosinophils 3.1 % (0.0-10.0); %Lymphocytes 18.6 % (21.0-51.0); %Monocytes 8.7 % (0.0-10.0); %Neutrophils 68.8 % (42.0-75.0); Hemoglobin 12.3 g/dL (14.0-18.0); Mean Corpuscular HGB CONC 33.5 g/dL (32.0-36.0); Mean Corpuscular Hemoglobin 29.9 pg (27.0-31.0); Mean Corpuscular Volume 89.1 fl (78.0-98.0); Mean Platelet Volume 9.9 fL (7.4-10.4); Platelet Count 347 10x3/uL (130-400); RBC Distribution Width 11.9 % (11.5-14.5); Red Blood Cell (RBC) Count 4.12 mill/uL (4.70-6.10)
[2022-12-05 08:29] LABS: ALT (SGPT) 8 U/L (8-55); AST (SGOT) 10 U/L (5-34); Albumin 3.7 g/dL (3.4-4.8); Alkaline Phosphatase 90 U/L (40-110); Anion Gap 16 mmol/L (10-20); BUN (Urea Nitrogen) 10 mg/dL (8.4-25.7); Bilirubin, Total 0.3 mg/dL (0.2-1.2); Calc. Creatinine Clearance 0 mL/min (70-130); Calcium 9.4 mg/dL (7.8-10.44); Carbon Dioxide 22 mmol/L (23-31); Chloride 100 mmol/L (98-107); Estimated GFR 77; Glucose 270 mg/dL (80-115); Potassium 4.1 mmol/L (3.5-5.1); Protein, Total 7.7 g/dL (5.8-8.1); Sodium 134 mmol/L (136-145)
[2022-12-05] MEDS ORDERED: Cefepime 2 GM VIAL ONE (09:13)
[2022-12-05] MEDS ORDERED: Clindamycin/D5W 300 MG/50 ML BAG ONE (09:57)
[2022-12-05] MEDS ORDERED: Clindamycin/D5W 600 mg/50 ml Premix Bag ONE (09:57)
[2022-12-05] MEDS ORDERED: Vancomycin 1.5 GRAM/300 ML BAG 1.5 GM in Premix Bag 1 BAG IVPB SCH (10:15)
== END 2022-12-05 15:30 | disposition short-term general hospital (02) ==
LOC: ERS 07:35
DX: L03.116 Cellulitis of left lower limb (principal); I96 Gangrene, not elsewhere classified; E10.40 Type 1 diabetes mellitus with diabetic neuropathy, unspecified
CPT/HCPCS: 73630 ×2; 80053; 85025; 86140; 87040; J3370; 36415; 96365; 96366; 96367; 96368; J0692; J3490

== ENCOUNTER 2023-01-26 08:47 | Outpatient (CLI) | payer MEDICARE, BC | END 2023-01-26 08:48 | disposition home or self-care (01) | LOC: RAD 08:47 | DX: Z47.81 Encounter for orthopedic aftercare following surgical amputation (principal); Z89.412 Acquired absence of left great toe; Z98.890 Other specified postprocedural states ==

== ENCOUNTER 2023-03-02 14:40 | Outpatient (CLI) | payer MEDICARE, BC | END 2023-03-02 14:41 | disposition home or self-care (01) | LOC: BICRAD 14:40 | PROVIDERS: ATTEND Podiatrist | DX: T81.89XA Other complications of procedures, not elsewhere classified, initial encounter (principal); S98.132A Complete traumatic amputation of one left lesser toe, initial encounter; T79.7XXA Traumatic subcutaneous emphysema, initial encounter ==

== ENCOUNTER 2023-04-06 17:04 | Emergency (ER) | payer MEDICARE, BC ==
[2023-04-06 19:37] LABS: #Basophils 0.1 thou/uL (0.0-0.2); #Monocytes 0.9 thou/uL (0.11-0.59); #Neutrophils 18.6 thou/uL (1.40-6.50); %Basophils 0.3 % (0.0-1.0); %Lymphocytes 5.5 % (21.0-51.0); %Monocytes 4.1 % (0.0-10.0); %Neutrophils 89.6 % (42.0-75.0); Hematocrit 39.1 % (42.0-52.0); Hemoglobin 13.2 g/dL (14.0-18.0); Mean Corpuscular HGB CONC 33.8 g/dL (32.0-36.0); Mean Corpuscular Hemoglobin 30.8 pg (27.0-31.0); Mean Corpuscular Volume 91.1 fl (78.0-98.0); Mean Platelet Volume 9.6 fL (7.4-10.4); Platelet Count 441 10x3/uL (130-400); RBC Distribution Width 12.8 % (11.5-14.5); Red Blood Cell (RBC) Count 4.29 mill/uL (4.70-6.10); White Blood Cell (WBC) Count 20.8 10x3/uL (4.8-10.8)
[2023-04-06] MEDS ORDERED: cefTRIAXone (ROCEPHIN) 1 GM VIAL ONE (19:50)
[2023-04-06] MEDS ORDERED: Sodium Chloride 0.9% 100 ML ONE (19:50)
[2023-04-06] MEDS ORDERED: cefTRIAXone (ROCEPHIN) 2 GM VIAL ONE (19:51)
[2023-04-06 20:24] LABS: Bilirubin Negative (Negative); Blood, Urine Large (Negative); Glucose, Urine (Dipstick) Negative (Negative); Ketone, Urine Trace mg/dL (Negative); Leukocyte Moderate (Negative); Nitrite Negative (Negative); Protein, Urine (Dipstick) 100 mg/dL (Neg-Trace); Urobilinogen 0.2 mg/dL (Less than 2)
[2023-04-06 20:27] LABS: Clarity Cloudy (Clear)
[2023-04-06 20:33] LABS: Bacteria/HPF 4+ HPF (None Seen); CAUTI Indications for Culture Dysuria,urgency,freq; Squamous Epithelial None Seen HPF (0-3); WBC/HPF Greater Than 50 HPF (0-3); Yeast-Budding 3+ HPF (None Seen)
[2023-04-06 20:34] LABS: Yeast-Hyphae 1+ HPF (None Seen)
[2023-04-06 20:35] LABS: Urine Culture Reflex Yes Yes
[2023-04-06 21:47] LABS: Albumin 3.6 g/dL (3.4-4.8)
[2023-04-06 21:48] LABS: Chloride 101 mmol/L (98-107)
[2023-04-06 21:49] LABS: Calcium 8.5 mg/dL (7.8-10.44); Potassium 4.3 mmol/L (3.5-5.1); Sodium 133 mmol/L (136-145)
[2023-04-06 21:50] LABS: Globulin 3.4 g/dL (2.4-3.5); Glucose 256 mg/dL (80-115)
[2023-04-06 21:51] LABS: Anion Gap 16 mmol/L (10-20); Carbon Dioxide 20 mmol/L (23-31)
[2023-04-06 21:52] LABS: Bilirubin, Total 0.2 mg/dL (0.2-1.2)
[2023-04-06 21:53] LABS: Alkaline Phosphatase 115 U/L (40-110); Calc. Creatinine Clearance 0 mL/min (70-130); Estimated GFR 70
[2023-04-06 21:54] LABS: BUN (Urea Nitrogen) 16 mg/dL (8.4-25.7)
[2023-04-06 21:55] LABS: AST (SGOT) 10 U/L (5-34)
[2023-04-06 21:56] LABS: ALT (SGPT) 8 U/L (8-55)
== END 2023-04-06 22:54 | disposition home or self-care (01) ==
LOC: ERS 17:04
DX: N39.0 Urinary tract infection, site not specified (principal); E10.40 Type 1 diabetes mellitus with diabetic neuropathy, unspecified; Z96.41 Presence of insulin pump (external) (internal); Z79.4 Long term (current) use of insulin
CPT/HCPCS: 36415; 80053; 81001; 83605; 85025; 87040; 87077; 87086; 87186; 96365; 96366; J0696; J3490

== ENCOUNTER 2023-04-09 12:07 | Inpatient (IN) | payer MEDICARE, BC ==
[2023-04-09 13:08] LABS: #Basophils 0.1 thou/uL (0.0-0.2); #Eosinphils 0.2 thou/uL (0.0-0.7); #Monocytes 1.3 thou/uL (0.11-0.59); #Neutrophils 14.3 thou/uL (1.40-6.50); %Basophils 0.4 % (0.0-1.0); %Eosinophils 0.8 % (0.0-10.0); %Lymphocytes 11.9 % (21.0-51.0); %Monocytes 7.2 % (0.0-10.0); %Neutrophils 79.3 % (42.0-75.0); Hematocrit 33.2 % (42.0-52.0); Hemoglobin 11.3 g/dL (14.0-18.0); Mean Corpuscular Hemoglobin 30.6 pg (27.0-31.0); Mean Platelet Volume 9.7 fL (7.4-10.4); Platelet Count 428 10x3/uL (130-400); RBC Distribution Width 12.7 % (11.5-14.5); Red Blood Cell (RBC) Count 3.69 mill/uL (4.70-6.10)
[2023-04-09 13:39] LABS: ALT (SGPT) 15 U/L (8-55); AST (SGOT) 29 U/L (5-34); Albumin 3.4 g/dL (3.4-4.8); Alkaline Phosphatase 116 U/L (40-110); Anion Gap 17 mmol/L (10-20); BUN (Urea Nitrogen) 15 mg/dL (8.4-25.7); Bilirubin, Total 0.4 mg/dL (0.2-1.2); Calc. Creatinine Clearance 0 mL/min (70-130); Calcium 8.9 mg/dL (7.8-10.44); Carbon Dioxide 22 mmol/L (23-31); Chloride 98 mmol/L (98-107); Estimated GFR 86; Globulin 4.2 g/dL (2.4-3.5); Glucose 78 mg/dL (80-115); Potassium 4.1 mmol/L (3.5-5.1); Protein, Total 7.6 g/dL (5.8-8.1); Sodium 133 mmol/L (136-145)
[2023-04-09] MEDS ORDERED: Cefepime 2 GM VIAL ONE (13:45)
[2023-04-09] MEDS ORDERED: Sodium Chloride 0.9% 100 ML ONE (13:46)
[2023-04-09] MEDS ORDERED: Iopamidol-370 76% 500 ML MDV (1 ML CHARGE) ONE (13:49)
[2023-04-09 14:29] LABS: Bacteria/HPF None Seen HPF (None Seen); Bilirubin Negative (Negative); Blood, Urine 2+ (Negative); CAUTI Indications for Culture Fever or rigors; Calcium Oxalate Crystals Rare HPF (None Seen); Clarity Extra Turbid (Clear); Glucose, Urine (Dipstick) Normal (Negative); Ketone, Urine Negative (Negative); Leukocyte 500 Leu/uL (Negative); Mucous/LPF Rare LPF (<2+); Nitrite Negative (Negative); Protein, Urine (Dipstick) 100 mg/dL (Neg-Trace); RBC/HPF 21-50 HPF (0-3); Specific Gravity, Urine 1.025 (1.002-1.036); Squamous Epithelial 0-3 HPF (0-3); Urobilinogen Normal mg/dL (Less than 2); WBC/HPF Greater than 50 HPF (0-3); pH, Urine 5.5 (5.0-9.0)
[2023-04-09 14:38] LABS: Urine Culture Reflex Yes Yes
[2023-04-09] MEDS ORDERED: Vancomycin (BATCH) 1.5 GM in Premix 1 BAG IVPB SCH (14:45)
[2023-04-09] MEDS ORDERED: Glucagon 1 MG/ML KIT IM PRN (15:01)
[2023-04-09] MEDS ORDERED: Dextrose 5% in Water 1,000 ML IV PRN (15:01)
[2023-04-09] MEDS ORDERED: Dextrose 50% Abboject 50 ML SYRINGE SLOW IVP PRN (15:01)
[2023-04-09] MEDS ORDERED: Ondansetron PF 4 MG/2 ML Vial IVP PRN (15:01)
[2023-04-09 16:42] LABS: Lactic Acid 1.2 mmol/L (0.5-2.2)
[2023-04-09] MEDS: metFORMIN 500 MG TAB PO SCH (17:00)
[2023-04-09 20:19] VITALS: BMI 26.9
[2023-04-09] MEDS: Lactated Ringer's 1,000 ML IV SCH (21:19)
[2023-04-09] MEDS: Acetaminophen 325 MG TAB PO PRN (21:19)
[2023-04-09] MEDS: Lisinopril 10 MG TAB PO SCH (21:41)
[2023-04-09] MEDS: Heparin 5,000 UNITS/ML VIAL SC SCH (23:11)
[2023-04-10] MEDS ORDERED: Cefepime 1 GM in Sodium Chloride 0.9% 100 ML IVPB SCH (02:00)
[2023-04-10 04:40] LABS: #Basophils 0.1 thou/uL (0.0-0.2); #Eosinphils 0.1 thou/uL (0.0-0.7); #Monocytes 0.8 thou/uL (0.11-0.59); #Neutrophils 14.1 thou/uL (1.40-6.50); %Basophils 0.7 % (0.0-1.0); %Eosinophils 0.4 % (0.0-10.0); %Lymphocytes 5.1 % (21.0-51.0); %Monocytes 5.1 % (0.0-10.0); %Neutrophils 88.3 % (42.0-75.0); Hematocrit 34.8 % (42.0-52.0); Hemoglobin 11.1 g/dL (14.0-18.0); Mean Corpuscular HGB CONC 31.9 g/dL (32.0-36.0); Mean Corpuscular Hemoglobin 29.8 pg (27.0-31.0); Mean Platelet Volume 9.7 fL (7.4-10.4); Platelet Count 381 10x3/uL (130-400); RBC Distribution Width 12.8 % (11.5-14.5); Red Blood Cell (RBC) Count 3.72 mill/uL (4.70-6.10)
[2023-04-10 04:47] LABS: Mean Corpuscular Volume 93.5 fl (78.0-98.0)
[2023-04-10 05:02] LABS: Anion Gap 18 mmol/L (10-20); BUN (Urea Nitrogen) 13 mg/dL (8.4-25.7); Calc. Creatinine Clearance 84 mL/min (70-130); Calcium 8.4 mg/dL (7.8-10.44); Carbon Dioxide 20 mmol/L (23-31); Chloride 103 mmol/L (98-107); Estimated GFR 89; Glucose 383 mg/dL (80-115); Potassium 4.8 mmol/L (3.5-5.1); Sodium 136 mmol/L (136-145)
[2023-04-10] MEDS: Lactated Ringer's 1,000 ML IV SCH ×3 (05:55→21:57)
[2023-04-10] MEDS: HumaLOG 300 UNITS/3 ML VIAL SC PRN ×2 (06:45→13:10)
[2023-04-10] MEDS ORDERED: PROPOFOL 20 ML ONE (07:18)
[2023-04-10] MEDS ORDERED: fentaNYL 50 mcg/mL 1 mL Vial ONE (07:18)
[2023-04-10] MEDS ORDERED: Lidocaine 2% PF 5 ML VIAL ONE (07:19)
[2023-04-10] MEDS ORDERED: Famotidine/PF 20 mg/2ml Vial ONE (07:42)
[2023-04-10] MEDS ORDERED: Iopamidol 0 ML ONE (07:49)
[2023-04-10] MEDS ORDERED: Lidocaine 1% (PF) 30 ML VIAL ONE (08:00)
[2023-04-10] MEDS ORDERED: Rocuronium Bromide 10 MG/ML (10ML VIAL) ONE ×2 (08:13→08:16)
[2023-04-10] MEDS ORDERED: Ondansetron PF 4 MG/2 ML Vial ONE ×2 (08:13→08:16)
[2023-04-10] MEDS ORDERED: SUGAMMADEX SODIUM 200 MG/2 ML VIAL ONE (08:13)
[2023-04-10] MEDS ORDERED: Lidocaine 1% PF 5 ML VIAL ONE (08:16)
[2023-04-10] MEDS ORDERED: PROPOFOL 200 MG/20 ML VIAL ONE (08:16)
[2023-04-10] MEDS ORDERED: Metoprolol Tartrate 5 MG (5 mL) VIAL ONE ×2 (08:16→08:48)
[2023-04-10] MEDS ORDERED: PHENYLEPHRINE-NS 100 MCG/ML 10 ML SYRINGE ONE (08:28)
[2023-04-10] MEDS ORDERED: Bacitracin Zinc Ointment 30 gm TUBE ONE (09:10)
[2023-04-10] MEDS ORDERED: Triple Antibiotic Oint 1 GM Packet TOP SCH (09:30)
[2023-04-10] MEDS ORDERED: Promethazine HCl 25 MG/ML VIAL IM PRN (09:54)
[2023-04-10] MEDS ORDERED: Ondansetron HCl/PF 4 MG/2 ML Vial IVP PRN (09:54)
[2023-04-10] MEDS: Ascorbic Acid 500 mg Chewable Tablet PO SCH (10:12)
[2023-04-10] MEDS: Lisinopril 10 MG TAB PO SCH ×2 (10:13→21:58)
[2023-04-10] MEDS: Heparin 5,000 UNITS/ML VIAL SC SCH (10:13)
[2023-04-10] MEDS: metFORMIN 500 MG TAB PO SCH (10:16)
[2023-04-10 11:00] LABS: Hematocrit 39.1 % (42.0-52.0); Hemoglobin 12.1 g/dL (14.0-18.0); Mean Corpuscular HGB CONC 30.9 g/dL (32.0-36.0); Mean Corpuscular Hemoglobin 30.6 pg (27.0-31.0); Mean Platelet Volume 9.7 fL (7.4-10.4); Platelet Count 367 10x3/uL (130-400); RBC Distribution Width 12.9 % (11.5-14.5); Red Blood Cell (RBC) Count 3.96 mill/uL (4.70-6.10); White Blood Cell (WBC) Count 14.6 10x3/uL (4.8-10.8)
[2023-04-10 11:04] LABS: Mean Corpuscular Volume 98.7 fl (78.0-98.0)
[2023-04-10] MEDS ORDERED: Pantoprazole 40 MG VIAL IVP SCH (13:30)
[2023-04-10] MEDS: Triple Antibiotic Oint 1 GM Packet TOP SCH ×3 (14:34→22:00)
[2023-04-10] MEDS: Cefepime 2 GM in Sodium Chloride 0.9% 100 ML IVPB SCH (14:34)
[2023-04-10 16:45] LABS: #Basophils 0.1 thou/uL (0.0-0.2); #Eosinphils 0.1 thou/uL (0.0-0.7); #Monocytes 1.1 thou/uL (0.11-0.59); #Neutrophils 12.8 thou/uL (1.40-6.50); %Basophils 0.8 % (0.0-1.0); %Eosinophils 0.8 % (0.0-10.0); %Lymphocytes 8.5 % (21.0-51.0); %Monocytes 7.2 % (0.0-10.0); %Neutrophils 82.4 % (42.0-75.0); Mean Corpuscular HGB CONC 33.8 g/dL (32.0-36.0); Mean Corpuscular Hemoglobin 30.4 pg (27.0-31.0); Mean Platelet Volume 9.5 fL (7.4-10.4); Platelet Count 382 10x3/uL (130-400); RBC Distribution Width 12.8 % (11.5-14.5); Red Blood Cell (RBC) Count 3.29 mill/uL (4.70-6.10); White Blood Cell (WBC) Count 15.5 10x3/uL (4.8-10.8)
[2023-04-10 16:49] LABS: Hematocrit 29.6 % (42.0-52.0)
[2023-04-10] MEDS: Pantoprazole 40 MG VIAL IVP SCH (21:58)
[2023-04-11] MEDS: Cefepime 2 GM in Sodium Chloride 0.9% 100 ML IVPB SCH ×2 (01:40→13:08)
[2023-04-11 06:04] LABS: #Basophils 0.1 thou/uL (0.0-0.2); #Eosinphils 0.3 thou/uL (0.0-0.7); #Monocytes 1.1 thou/uL (0.11-0.59); %Basophils 0.6 % (0.0-1.0); %Eosinophils 2.3 % (0.0-10.0); %Lymphocytes 13.4 % (21.0-51.0); %Monocytes 7.7 % (0.0-10.0); %Neutrophils 75.6 % (42.0-75.0); Hemoglobin 9.7 g/dL (14.0-18.0); Mean Corpuscular HGB CONC 33.4 g/dL (32.0-36.0); Mean Corpuscular Hemoglobin 30.2 pg (27.0-31.0); Mean Corpuscular Volume 90.3 fl (78.0-98.0); Mean Platelet Volume 9.6 fL (7.4-10.4); Platelet Count 360 10x3/uL (130-400); RBC Distribution Width 12.7 % (11.5-14.5); Red Blood Cell (RBC) Count 3.21 mill/uL (4.70-6.10); White Blood Cell (WBC) Count 14.5 10x3/uL (4.8-10.8)
[2023-04-11 06:29] LABS: Anion Gap 12 mmol/L (10-20); BUN (Urea Nitrogen) 8 mg/dL (8.4-25.7); Calc. Creatinine Clearance 103 mL/min (70-130); Calcium 8.2 mg/dL (7.8-10.44); Carbon Dioxide 26 mmol/L (23-31); Chloride 104 mmol/L (98-107); Estimated GFR 98; Glucose 148 mg/dL (80-115); Potassium 3.6 mmol/L (3.5-5.1); Sodium 138 mmol/L (136-145)
[2023-04-11] MEDS: Lactated Ringer's 1,000 ML IV SCH (06:30)
[2023-04-11] MEDS: Ascorbic Acid 500 mg Chewable Tablet PO SCH (08:40)
[2023-04-11] MEDS: Pantoprazole 40 MG VIAL IVP SCH (08:44)
[2023-04-11] MEDS: Triple Antibiotic Oint 1 GM Packet TOP SCH ×2 (09:48→13:11)
[2023-04-11] MEDS ORDERED: PROPOFOL 40 ML ONE (11:14)
[2023-04-11] MEDS ORDERED: Lidocaine 2% PF 5 ML VIAL ONE (11:17)
[2023-04-11] MEDS ORDERED: Lidocaine 1% PF 5 ML VIAL ONE (11:26)
[2023-04-11] MEDS ORDERED: PROPOFOL 200 MG/20 ML VIAL ONE (11:26)
[2023-04-11] MEDS: Lisinopril 10 MG TAB PO SCH (12:43)
[2023-04-11] MEDS: Acetaminophen 325 MG TAB PO PRN (13:10)
[2023-04-11 17:23] VITALS: BP 152/69; TEMP 98.6
== END 2023-04-11 17:21 | disposition home health service (06) | DRG 981 ==
LOC: ERS 12:07 → ERHOLD 15:05 → SURG A 18:41 → T4-B 04-10 21:25
PROVIDERS: ADMIT Internal Medicine; ATTEND Internal Medicine
PROC: 0T9B80Z Drainage of Bladder with Drainage Device, Via Natural or Artificial Opening Endoscopic (ICD-10-PCS; principal; 2023-04-09)
PROC: 0JDB0ZZ Extraction of Perineum Subcutaneous Tissue and Fascia, Open Approach (ICD-10-PCS; 2023-04-09)
PROC: 0DB58ZX Excision of Esophagus, Via Natural or Artificial Opening Endoscopic, Diagnostic (ICD-10-PCS; 2023-04-11)
DX: T83.511A Infection and inflammatory reaction due to indwelling urethral catheter, initial encounter (principal); A41.9 Sepsis, unspecified organism; K22.11 Ulcer of esophagus with bleeding; D62 Acute posthemorrhagic anemia; R33.9 Retention of urine, unspecified; N48.29 Other inflammatory disorders of penis; Z79.899 Other long term (current) drug therapy; Z79.82 Long term (current) use of aspirin; I10 Essential (primary) hypertension; F03.90 Unspecified dementia, unspecified severity, without behavioral disturbance, psychotic disturbance, mood disturbance, and anxiety; Z79.4 Long term (current) use of insulin; Y84.6 Urinary catheterization as the cause of abnormal reaction of the patient, or of later complication, without mention of misadventure at the time of the procedure; N39.0 Urinary tract infection, site not specified; E10.40 Type 1 diabetes mellitus with diabetic neuropathy, unspecified; Z96.41 Presence of insulin pump (external) (internal)
CPT/HCPCS: 36415; 36416; 71045; 74178; 80048; 80053; 81001; 83605; 85025; 87040; 87077; 87086; 87186; 88305; 93005; 96361; 96365; 96366; 96367; C9113; J0692; J0696; J1644; J1815; J2001; J2405; J2704; J3010; J3370; J3490; J7120; Q9967; S0028

== ENCOUNTER 2023-05-20 11:52 | Emergency (ER) | payer MEDICARE, BC ==
[2023-05-20 12:40] LABS: #Basophils 0.1 thou/uL (0.0-0.2); #Eosinphils 0.2 thou/uL (0.0-0.7); #Neutrophils 9.3 thou/uL (1.40-6.50); %Basophils 0.6 % (0.0-1.0); %Eosinophils 1.7 % (0.0-10.0); %Lymphocytes 15.3 % (21.0-51.0); %Monocytes 8.1 % (0.0-10.0); Hematocrit 39.7 % (42.0-52.0); Hemoglobin 12.8 g/dL (14.0-18.0); Mean Corpuscular HGB CONC 32.2 g/dL (32.0-36.0); Mean Corpuscular Hemoglobin 29.9 pg (27.0-31.0); Mean Corpuscular Volume 92.8 fl (78.0-98.0); Mean Platelet Volume 10.3 fL (7.4-10.4); Platelet Count 319 10x3/uL (130-400); RBC Distribution Width 13.9 % (11.5-14.5); Red Blood Cell (RBC) Count 4.28 mill/uL (4.70-6.10); White Blood Cell (WBC) Count 12.6 10x3/uL (4.8-10.8)
[2023-05-20 13:04] LABS: ALT (SGPT) 16 U/L (8-55); AST (SGOT) 18 U/L (5-34); Albumin 3.7 g/dL (3.4-4.8); Alkaline Phosphatase 108 U/L (40-110); Anion Gap 13 mmol/L (10-20); BUN (Urea Nitrogen) 13 mg/dL (8.4-25.7); Bilirubin, Total 0.4 mg/dL (0.2-1.2); Calc. Creatinine Clearance 0 mL/min (70-130); Calcium 8.8 mg/dL (7.8-10.44); Carbon Dioxide 24 mmol/L (23-31); Chloride 107 mmol/L (98-107); Estimated GFR 97; Globulin 3.7 g/dL (2.4-3.5); Glucose 58 mg/dL (80-115); Potassium 3.4 mmol/L (3.5-5.1); Protein, Total 7.4 g/dL (5.8-8.1); Sodium 141 mmol/L (136-145)
== END 2023-05-20 14:55 | disposition home or self-care (01) ==
LOC: ERS 11:52
DX: E10.649 Type 1 diabetes mellitus with hypoglycemia without coma (principal)
CPT/HCPCS: 36415; 36416; 80053; 85025; 93005

== ENCOUNTER 2023-11-09 14:39 | Outpatient (CLI) | payer MEDICARE, BC ==
[2023-11-09 16:03] LABS: #Basophils 0.07 10x3/uL (0.0-0.2); #Monocytes 0.63 10x3/uL (0.0-1.1); #Neutrophils 4.99 10x3/uL (1.5-8.4); %Basophils 0.9 % (0.0-2.0); %Eosinophils 3.9 % (0.0-6.0); %Lymphocytes 21.2 % (18.0-47.0); %Monocytes 8.3 % (0.0-10.0); %Neutrophils 65.4 % (40.0-75.0); Hematocrit 35.3 % (38.8-50.0); Mean Corpuscular Volume 91.2 fL (81.2-95.1); Mean Platelet Volume 10.6 fL (7.4-10.4); Platelet Count 279 10x3/uL (150-450); RBC Distribution Width 13.3 % (11.5-14.5); Red Blood Cell (RBC) Count 3.87 10x6/uL (4.32-5.72); White Blood Cell (WBC) Count 7.6 10x3/uL (3.5-10.5)
[2023-11-09 16:24] LABS: Anion Gap 16 mmol/L (10-20); BUN (Urea Nitrogen) 12 mg/dL (8.4-25.7); Calc. Creatinine Clearance 0 mL/min (70-130); Calcium 8.8 mg/dL (7.8-10.44); Carbon Dioxide 22 mmol/L (23-31); Chloride 102 mmol/L (98-107); Estimated GFR 79; Glucose 395 mg/dL (80-115); Potassium 4.5 mmol/L (3.5-5.1); Sodium 135 mmol/L (136-145)
== END 2023-11-09 14:40 | disposition home or self-care (01) ==
LOC: LABBT 14:39
PROVIDERS: ATTEND Internal Medicine Cardiovascular Disease
DX: Z01.818 Encounter for other preprocedural examination (principal)
CPT/HCPCS: 80048; 85025; 93005; 93010

== ENCOUNTER 2023-11-12 05:32 | Day surgery (SDC) | payer MEDICARE, BC ==
[2023-11-09 15:22] VITALS: BMI 27.1
[2023-11-12] MEDS ORDERED: Heparin 10,000 UNITS/ 10 ML VIAL ONE (06:19)
[2023-11-12] MEDS ORDERED: Midazolam HCl 2 mg/2 ml Vial ONE (07:11)
[2023-11-12] MEDS ORDERED: fentaNYL 50 mcg/mL 1 mL Vial ONE (07:11)
[2023-11-12] MEDS ORDERED: Protamine Sulfate 50 MG/5 ML VIAL ONE (08:38)
[2023-11-12] MEDS ORDERED: Iopamidol 370 76% 100 ML VIAL ONE (12:48)
== END 2023-11-12 14:40 | disposition home or self-care (01) ==
LOC: SDC 05:32
PROVIDERS: ATTEND Internal Medicine Cardiovascular Disease
PROC: 047M3ZZ Dilation of Right Popliteal Artery, Percutaneous Approach (ICD-10-PCS; principal; 2023-11-12)
DX: I73.9 Peripheral vascular disease, unspecified (principal); E11.621 Type 2 diabetes mellitus with foot ulcer; L97.511 Non-pressure chronic ulcer of other part of right foot limited to breakdown of skin; I10 Essential (primary) hypertension; Z87.891 Personal history of nicotine dependence; Z79.4 Long term (current) use of insulin; Z79.84 Long term (current) use of oral hypoglycemic drugs; Z79.899 Other long term (current) drug therapy
CPT/HCPCS: 36245; 37228; 75710; 82962; 85347 ×2; C1725; C1769 ×4; C1887; C1894; J1644; J2250; J2720; J3010; 36416; 75625; Q9967